=== PATIENT | female | born 1975 | race Caucasian/White ===

== ENCOUNTER 2019-10-26 17:10 | Inpatient (IN) | payer SELFPAY ==
[2019-10-26] VITALS (8 sets, daily range): BP systolic 109–138; BP diastolic 74–88
[~2019-10-26] VITALS: Ht 157.5 cm; Wt 98.8 kg
[2019-10-26] MEDS ORDERED: fentaNYL PF VIAL 100 MCG/2 ML VIAL ONE ×2 (17:14→19:24)
[2019-10-26] MEDS ORDERED: PROPOFOL 10 MG/ML (20ML) VIAL. IV ONE (17:14)
[2019-10-26] MEDS ORDERED: ROCURONIUM 50 MG/5 ML VIAL. ONE (17:14)
[2019-10-26] MEDS ORDERED: LIDOCAINE 2% PF 5 ML VIAL. ONE (17:14)
[2019-10-26] MEDS ORDERED: IV RINGERS,LACTATED 1000ML 1,000 ML IV SCH (17:24)
[2019-10-26] MEDS ORDERED: LIDOCAINE 1% PF 2 ML VIAL. ID PRN (17:30)
[2019-10-26] MEDS ORDERED: ONDANSETRON PF 4 MG/2 ML VIAL. IV PRN (17:30)
[2019-10-26] MEDS ORDERED: fentaNYL PF VIAL 100 MCG/2 ML VIAL IV PRN (17:30)
[2019-10-26] MEDS ORDERED: HYDROmorphone 2 MG/ML VIAL IV PRN (17:30)
[2019-10-26] MEDS ORDERED: MORPHINE SULFATE 2 MG/ML VIAL. IV PRN (17:30)
[2019-10-26] MEDS ORDERED: PROCHLORPERAZINE 10 MG/2 ML VIAL. IV PRN (17:30)
[2019-10-26] MEDS ORDERED: BUPIVACAINE-EPI 0.5%-1:200000 MPF 30 ML VIAL. ONE (17:36)
[2019-10-26] MEDS ORDERED: cefOXitin SODIUM IV Push 2 GM VIAL. IVP ONE (17:45)
[2019-10-26] MEDS ORDERED: fentaNYL PF VIAL 100 MCG/2 ML VIAL IVP ONE (17:45)
[2019-10-26] MEDS ORDERED: cefOXitin SODIUM IV Push 1 GM VIAL. IVP ONE ×2 (18:02→18:50)
[2019-10-26] MEDS: fentaNYL PF VIAL 100 MCG/2 ML VIAL IV PRN ×3 (18:25→19:35)
--- NOTE | 2019-10-26 18:28 | PDOC2 ---
CONSULT Date of Consult Date of Consult DATE: 10/26/19 TIME: 18:19 Reason for Consult Reason for Consult: Appendicitis Referring Physician Referring Physician: Dr. Nuñez Identification/Chief Complaint Chief Complaint RLQ abd pain Source Source: Chart review, Patient History of Present Illness Reason for Visit: appendicitis 44 yo F with c/o abd pain, beginning last night at work. She has mainly noted increased urinary frequency. No previous episodes. Pain has worsened. She was seen in [facility] and transferred to [facility]. Pt seen in pre. Past Medical History Cardiovascular: No pertinent hx Past Surgical History Past Surgical History: , Tonsillectomy Family History Family History: No Significant Social History 1 pack per day ALCOHOL: none Current Medications Current Medications Current Medications Propofol (Diprivan) 200 mg STK-MED ONCE IV ; Start 10/26/19 at 17:14; Stop 10/26/19 at 17:15; Status DC Lidocaine HCl (Lidocaine Pf 2% Vial) 5 ml STK-MED ONCE .ROUTE ; Start 10/26/19 at 17:14; Stop 10/26/19 at 17:15; Status DC Fentanyl Citrate (Fentanyl 2ml Vial) 100 mcg STK-MED ONCE .ROUTE ; Start 10/26/19 at 17:14; Stop 10/26/19 at 17:15; Status DC Rocuronium [place] (Zemuron) 50 mg STK-MED ONCE .ROUTE ; Start 10/26/19 at 17:14; Stop 10/26/19 at 17:15; Status DC Ondansetron HCl (Zofran) 4 mg PRN Q6HRS PRN IV NAUSEA/VOMITING; Start 10/26/19 at 17:30; Stop 10/27/19 at 17:29 Fentanyl Citrate (Fentanyl 2ml Vial) 25 mcg PRN Q5MIN PRN IV MILD PAIN 1-3; Start 10/26/19 at 17:30; Stop 10/27/19 at 17:29 Fentanyl Citrate (Fentanyl 2ml Vial) 50 mcg PRN Q5MIN PRN IV MODERATE TO SEVERE PAIN; Start 10/26/19 at 17:30; Stop 10/27/19 at 17:29 Morphine Sulfate (Morphine Sulfate) 1 mg PRN Q10MIN PRN IV SEVERE PAIN 7-10; Start 10/26/19 at 17:30; Stop 10/27/19 at 17:29 Ringer's Solution 1,000 ml @ 30 mls/hr Q24H IV Last administered on 10/26/19at 17:46; Start 10/26/19 at 17:24; Stop 10/27/19 at 05:23 Lidocaine HCl (Xylocaine-Mpf 1% 2ml Vial) 2 ml PRN 1X PRN ID PRIOR TO IV START; Start 10/26/19 at 17:30; Stop 10/27/19 at 17:29 Hydromorphone HCl (Dilaudid) 0.5 mg PRN Q10MIN PRN IV SEV PAIN, Second choice; Start 10/26/19 at 17:30; Stop 10/27/19 at 17:29 Prochlorperazine Edisylate (Compazine) 5 mg PACU PRN PRN IV NAUSEA, MRX1; Start 10/26/19 at 17:30; Stop 10/27/19 at 17:29 Cefoxitin Sodium (Mefoxin) 2 gm 1X PREOP ONCE IVP ; Start 10/26/19 at 17:45; Stop 10/26/19 at 17:46; Status DC Bupivacaine HCl/ Epinephrine Bitart (Sensorcain-Epi 0.5%-1:321759 Mpf) 30 ml STK-MED ONCE .ROUTE Last administered on 10/26/19at 18:12; Start 10/26/19 at 17:36; Stop 10/26/19 at 17:36; Status DC Fentanyl Citrate (Fentanyl 2ml Vial) 50 mcg 1X ONCE IVP Last administered on 10/26/19at 17:48; Start 10/26/19 at 17:45; Stop 10/26/19 at 17:46; Status DC Cefoxitin Sodium (Mefoxin) 1 gm STK-MED ONCE IVP ; Start 10/26/19 at 18:02; Stop 10/26/19 at 18:02; Status DC Allergies Allergies: Coded Allergies: No Known Drug Allergies (Unverified , 10/26/19) ROS Gastrointestinal: Yes Abdominal Pain Genitourinary: YES Frequency Physical Exam General: Alert, Oriented X3, Cooperative, mild distress, Other (obesity) HEENT: Atraumatic Lungs: Normal air movement Abdomen: Soft, Other (TTP RUQ<RLQ, peritoneal signs) Extremities: No clubbing, No cyanosis Skin: No rashes, No breakdown Neuro: Normal speech, Sensation intact Psych/Mental Status: Mental status NL, Mood NL Vitals VITALS Vital Signs Date Time Temp Pulse Resp B/P (MAP) Pulse Ox O2 Delivery O2 Flow Rate FiO2 10/26/19 18:05 100 20 143/79 98 Room Air Labs Labs Laboratory Tests Test 10/26/19 17:37 SARS-CoV-2 Antigen (Rapid) Negative (NEGATIVE) Laboratory Tests Test 10/26/19 17:37 SARS-CoV-2 Antigen (Rapid) Negative (NEGATIVE) Images Images CT at [facility] with inflamed appendix Assessment/Plan Assessment/Plan Appendicitis covid neg given elevated WBC, suspect pt with perforated appendicitis TO OR for laparoscopic versus open appendectomy. R/R/B/A d/w pt. Risks, including, but not limited to: bleeding, infection, damage to surrounding structures, risk of anesthesia, risk of open. She appears to understand, her questions are answered and she elects to proceed. Thanks for consult! KOKO STARK MD Oct 26, 2019 18:28
[2019-10-26] MEDS ORDERED: DESFLURANE 31 TO 60 MINUTES IH ONE (18:38)
[2019-10-26] MEDS ORDERED: ONDANSETRON PF 4 MG/2 ML VIAL. ONE (18:38)
[2019-10-26] MEDS ORDERED: DEXAMETHASONE SOD PHOS 4 MG/ML VIAL ONE (18:38)
[2019-10-26] MEDS ORDERED: NEOSTIGMINE 10 MG/10 ML VIAL. ONE (18:58)
[2019-10-26] MEDS ORDERED: GLYCOPYRROLATE 1 MG/5 ML VIAL. ONE (18:58)
[2019-10-26] MEDS: IV NORMAL SALINE 1000ML BAG 1,000 ML IV SCH (19:12)
[2019-10-26] MEDS ORDERED: NALOXONE 0.4 MG/ML VIAL. IV PRN (19:15)
[2019-10-26] MEDS ORDERED: 0.9 % SODIUM CHLORIDE 10 ML DISP.SYRIN. IV PRN (19:15)
--- NOTE | 2019-10-26 19:22 | PDOC4 ---
OPERATIVE NOTE Date: Date: Oct 26, 2019 Pre-Op Diagnosis: Appendicitis Post-Op Diagnosis: same Procedure Performed: laparoscopic appendectomy Surgeon: Axel Stark Anesthesia Type: GETA plus local Blood Loss: 50 Specimans Obtained: appendix Findings: distended, inflamed appendix, friable Complications: none Operative Note: After obtaining informed consent, patient was taken to OR, induced under GETA and prepped in the usual fashion. 5mm port placed LLQ and suprapubic, 12 port placed RUQ, all under laparoscopic guidance. Abdominal cavity was explored and otherwise unremarkable, although exploration difficult secondary to obesity. Liver fatty and gallbladder micheal's egg blue. Visualized viscera normal. Appendix was identified and found to be distended and friable. Minimal manipulation resulted in some drainage from appendix. Defect created in mesoappendix. General load KEISHA taken across base at level of cecum. Mesoappendix was divided with vascular load. Additional hemostasis obtained with clips. Appendix placed in bag, delivered and sent to pathology for evaluation. Copious irrigation. No evidence of bleeding or other pathology at time of closure. Ports removed without bleeding. Fascia repaired with 0 vicryl. Skin repaired with 4 0 monocryl. Dressin placed. Patient tolerated procedure well and sent to PACU in stable condition. All counts correct. Wound class is 4, dirty. KOKO STARK MD Oct 26, 2019 19:22
[2019-10-26] MEDS ORDERED: PROCHLORPERAZINE 10 MG/2 ML VIAL. ONE (19:24)
--- NOTE | 2019-10-26 20:17 | SSS ---
ADMIT DATE: 10/26/2019 Discharge will be 10/26, from prediction she is going home. CHIEF COMPLAINT: Abdominal pain. HISTORY OF PRESENT ILLNESS: The patient is a pleasant middle-aged female who presented to the ER with abdominal pain. She initially went to [facility]. She rates her pain at 7/10. She has associated nausea. They did a CAT scan that confirmed appendicitis. They called me, we transferred the patient. Now, she is in the postoperative area. Dr. Casillas operated on her, did a laparoscopic appendectomy. PAST MEDICAL AND SURGICAL HISTORY: Overweight, as well, tonsillectomy, tobacco abuse. ALLERGIES: None. FAMILY HISTORY: Diabetes. SOCIAL HISTORY: She works at a gas station. She does not take drugs or drink. She does smoke. MEDICATIONS: Reviewed. Please refer to the MRAD. REVIEW OF SYSTEMS: GENERAL: No history of weight change, weakness or fevers. SKIN: No bruising, hair changes or rashes. EYES: No blurred, double or loss of vision. NOSE AND THROAT: No history of nosebleeds, hoarseness or sore throat. HEART: No history of palpitations, chest pain or shortness of breath on exertion. LUNGS: Denies cough, hemoptysis, wheezing or shortness of breath. GASTROINTESTINAL: She complains of abdominal pain. GENITOURINARY: No history of frequency, urgency, hesitancy or nocturia. NEUROLOGIC: Denies history of numbness, tingling, tremor or weakness. PSYCHIATRIC: No history of panic, anxiety or depression. ENDOCRINE: No history of heat or cold intolerance, polyuria or polydipsia. EXTREMITIES: Denies muscle weakness, joint pain, pain on walking or stiffness. PHYSICAL EXAMINATION: VITALS: Within normal limits and are stable. GENERAL: No apparent distress. Alert and oriented. HEENT: Normal cephalic atraumatic, external auditory canals are patent. EYES: Extraocular muscles are intact, pupils are equally round and reactive to light and accommodation. MUSCULOSKELETAL: Well developed, well nourished, good range of motion. ENDOCRINE: No thyromegaly was palpated. LYMPHATICS: No cervical chain or axillary nodes were noted. HEMATOPOIETIC: No bruising. NECK: Supple, no JVD, no thyromegaly was noted. LUNGS: Clear to auscultation in all lung mcconnell without rhonchi or wheezing. HEART: RRR, S1, S2 present. Peripheral pulses intact, no obvious murmurs were noted. ABDOMEN: She has clean, dry and intact dressings over 3 trocar sites. EXTREMITIES: Without any cyanosis, clubbing, or edema. Pedal pulses intact, Homans sign is negative. NEUROLOGIC: Normal speech, normal tone. A & O x3, moves all extremities, no obvious focal deficits. PSYCHIATRIC: Normal affect, normal mood. Stable. SKIN: No ulcerations or rashes, good skin turgor, no jaundice. VASCULAR: Good capillary refill, neurovascular bundle appears to be intact. LABORATORY DATA: Her COVID testing was negative. ASSESSMENT AND PLAN: Postoperative laparoscopic appendectomy. The patient has been admitted to the medical floor. We are going to do wound care, home meds, IV fluids, p.r.n. pain meds. Try to advance her diet. We have her currently on a clear liquid diet if she can tolerate that. Deep venous thrombosis prophylaxis. P.r.n. hydrocodone, IV antibiotics. Hopefully she can go home tomorrow if she is tolerating her diet. GERARDO PATEL DO DR: HITESH/cristal JOB#: [id number] / [id number]
[2019-10-26] MEDS: MORPHINE SULFATE 2 MG/ML VIAL. IV PRN ×2 (21:14→23:23)
[2019-10-27] MEDS: PIPERACILLIN/TAZOBACTAM 3.375 GM in IV NORMAL SALINE 50ML 50 ML IV SCH ×5 (00:27→23:01)
[2019-10-27] MEDS: IV NORMAL SALINE 1000ML BAG 1,000 ML IV SCH (00:28)
[2019-10-27] MEDS: MORPHINE SULFATE 2 MG/ML VIAL. IV PRN ×3 (02:18→21:42)
[2019-10-27 03:00] VITALS: BP 115/64
[2019-10-27 03:15] LABS: BASO # 0.1 x10^3/uL (0.0-0.2); BASO % 0 % (0-3); EOS % 0 % (0-3); HEMATOCRIT 40.9 % (36.0-47.0); HEMOGLOBIN 13.9 g/dL (12.0-15.5); LYMPH # 1.3 x10^3/uL (1.0-4.8); LYMPH % 7 % (24-48); MEAN CORPUSCULAR HEMOGLOBIN 33 pg (25-35); MEAN CORPUSCULAR HGB CONC 34 g/dL (31-37); MEAN CORPUSCULAR VOLUME 98 fL (79-100); MONO # 0.6 x10^3/uL (0.0-1.1); MONO % 3 % (0-9); NEUT # 15.6 x10^3/uL (1.8-7.7); NEUT % 89 % (31-73); PLATELET COUNT 267 x10^3/uL (140-400); RED BLOOD COUNT 4.18 x10^6/uL (3.50-5.40); WHITE BLOOD COUNT 17.5 x10^3/uL (4.0-11.0)
[2019-10-27 03:53] LABS: % BANDS 15 % (0-9); % LYMPHS 9 % (24-48); % MONOS 2 % (0-10); % SEGS 74 % (35-66); PLT ESTIMATE ADEQUATE (ADEQUATE)
[2019-10-27] MEDS: IV RINGERS,LACTATED 1000ML 1,000 ML IV SCH ×3 (05:12→17:45)
[2019-10-27] MEDS: HYDROcodone/APAP 5/325MG 1 TAB TABLET PO PRN ×3 (06:05→17:44)
[2019-10-27 07:00] VITALS: BP 120/76
[2019-10-27] MEDS: KETOROLAC 30 MG/ML VIAL. IV PRN ×3 (08:51→23:00)
[2019-10-27] MEDS: HEPARIN for SUB-Q USE 5,000 UNIT/ML VIAL. SQ SCH ×2 (08:59→21:48)
--- NOTE | 2019-10-27 09:24 | PDOC ---
PROGRESS NOTES Subjective Subjective sore "all over abdomen" Objective Objective Vital Signs Date Time Temp Pulse Resp B/P (MAP) Pulse Ox O2 Delivery O2 Flow Rate FiO2 10/27/19 07:00 98.8 112 18 120/76 (91) 90 Room Air 98.8 10/27/19 00:00 3.0 Intake and Output 10/27/19 07:00 Intake Total 1160 ml Output Total 350 ml Balance 810 ml Intake Oral 360 ml IV Total 800 ml Output Urine Total 300 ml Estimated Blood Loss 50 ml # Voids 1 Physical Exam Abdomen: Soft (tender with palpation) Assessment Assessment POD 1 lap appy Plan Plan of Care Continue antibiotics, pain control, ambulate today Comment Review of Relevant I have reviewed the following items rod (where applicable) has been applied. Labs Laboratory Tests Test 10/26/19 17:37 10/27/19 02:45 SARS-CoV-2 Antigen (Rapid) Negative (NEGATIVE) White Blood Count 17.5 x10^3/uL (4.0-11.0) Red Blood Count 4.18 x10^6/uL (3.50-5.40) Hemoglobin 13.9 g/dL (12.0-15.5) Hematocrit 40.9 % (36.0-47.0) Mean Corpuscular Volume 98 fL (79-100) Mean Corpuscular Hemoglobin 33 pg (25-35) Mean Corpuscular Hemoglobin Concent 34 g/dL (31-37) Red Cell Distribution Width 13.0 % (11.5-14.5) Platelet Count 267 x10^3/uL (140-400) Neutrophils (%) (Auto) 89 % (31-73) Lymphocytes (%) (Auto) 7 % (24-48) Monocytes (%) (Auto) 3 % (0-9) Eosinophils (%) (Auto) 0 % (0-3) Basophils (%) (Auto) 0 % (0-3) Neutrophils # (Auto) 15.6 x10^3/uL (1.8-7.7) Lymphocytes # (Auto) 1.3 x10^3/uL (1.0-4.8) Monocytes # (Auto) 0.6 x10^3/uL (0.0-1.1) Eosinophils # (Auto) 0.0 x10^3/uL (0.0-0.7) Basophils # (Auto) 0.1 x10^3/uL (0.0-0.2) Segmented Neutrophils % 74 % (35-66) Band Neutrophils % 15 % (0-9) Lymphocytes % 9 % (24-48) Monocytes % 2 % (0-10) Platelet Estimate Adequate (ADEQUATE) Laboratory Tests Test 10/26/19 17:37 10/27/19 02:45 SARS-CoV-2 Antigen (Rapid) Negative (NEGATIVE) White Blood Count 17.5 x10^3/uL (4.0-11.0) Red Blood Count 4.18 x10^6/uL (3.50-5.40) Hemoglobin 13.9 g/dL (12.0-15.5) Hematocrit 40.9 % (36.0-47.0) Mean Corpuscular Volume 98 fL (79-100) Mean Corpuscular Hemoglobin 33 pg (25-35) Mean Corpuscular Hemoglobin Concent 34 g/dL (31-37) Red Cell Distribution Width 13.0 % (11.5-14.5) Platelet Count 267 x10^3/uL (140-400) Neutrophils (%) (Auto) 89 % (31-73) Lymphocytes (%) (Auto) 7 % (24-48) Monocytes (%) (Auto) 3 % (0-9) Eosinophils (%) (Auto) 0 % (0-3) Basophils (%) (Auto) 0 % (0-3) Neutrophils # (Auto) 15.6 x10^3/uL (1.8-7.7) Lymphocytes # (Auto) 1.3 x10^3/uL (1.0-4.8) Monocytes # (Auto) 0.6 x10^3/uL (0.0-1.1) Eosinophils # (Auto) 0.0 x10^3/uL (0.0-0.7) Basophils # (Auto) 0.1 x10^3/uL (0.0-0.2) Segmented Neutrophils % 74 % (35-66) Band Neutrophils % 15 % (0-9) Lymphocytes % 9 % (24-48) Monocytes % 2 % (0-10) Platelet Estimate Adequate (ADEQUATE) Medications Current Medications Propofol (Diprivan) 200 mg STK-MED ONCE IV ; Start 10/26/19 at 17:14; Stop 10/26/19 at 17:15; Status DC Lidocaine HCl (Lidocaine Pf 2% Vial) 5 ml STK-MED ONCE .ROUTE ; Start 10/26/19 at 17:14; Stop 10/26/19 at 17:15; Status DC Fentanyl Citrate (Fentanyl 2ml Vial) 100 mcg STK-MED ONCE .ROUTE ; Start 10/26/19 at 17:14; Stop 10/26/19 at 17:15; Status DC Rocuronium [place] (Zemuron) 50 mg STK-MED ONCE .ROUTE ; Start 10/26/19 at 17:14; Stop 10/26/19 at 17:15; Status DC Ondansetron HCl (Zofran) 4 mg PRN Q6HRS PRN IV NAUSEA/VOMITING; Start 10/26/19 at 17:30; Stop 10/27/19 at 17:29 Fentanyl Citrate (Fentanyl 2ml Vial) 25 mcg PRN Q5MIN PRN IV MILD PAIN 1-3; Start 10/26/19 at 17:30; Stop 10/27/19 at 17:29 Fentanyl Citrate (Fentanyl 2ml Vial) 50 mcg PRN Q5MIN PRN IV MODERATE TO SEVERE PAIN Last administered on 10/26/19at 19:35; Start 10/26/19 at 17:30; Stop 10/27/19 at 17:29 Morphine Sulfate (Morphine Sulfate) 1 mg PRN Q10MIN PRN IV SEVERE PAIN 7-10; Start 10/26/19 at 17:30; Stop 10/27/19 at 17:29 Ringer's Solution 1,000 ml @ 30 mls/hr Q24H IV Last administered on 10/26/19at 17:46; Start 10/26/19 at 17:24; Stop 10/27/19 at 05:23; Status DC Lidocaine HCl (Xylocaine-Mpf 1% 2ml Vial) 2 ml PRN 1X PRN ID PRIOR TO IV START; Start 10/26/19 at 17:30; Stop 10/27/19 at 17:29 Hydromorphone HCl (Dilaudid) 0.5 mg PRN Q10MIN PRN IV SEV PAIN, Second choice; Start 10/26/19 at 17:30; Stop 10/27/19 at 17:29 Prochlorperazine Edisylate (Compazine) 5 mg PACU PRN PRN IV NAUSEA, MRX1 Last administered on 10/26/19at 19:26; Start 10/26/19 at 17:30; Stop 10/27/19 at 17:29 Cefoxitin Sodium (Mefoxin) 2 gm 1X PREOP ONCE IVP Last administered on at 18:39; Start 10/26/19 at 17:45; Stop 10/26/19 at 17:46; Status DC Bupivacaine HCl/ Epinephrine Bitart (Sensorcain-Epi 0.5%-1:297040 Mpf) 30 ml STK-MED ONCE .ROUTE Last administered on 10/26/19at 18:12; Start 10/26/19 at 17:36; Stop 10/26/19 at 17:36; Status DC Fentanyl Citrate (Fentanyl 2ml Vial) 50 mcg 1X ONCE IVP Last administered on 10/26/19at 17:48; Start 10/26/19 at 17:45; Stop 10/26/19 at 17:46; Status DC Cefoxitin Sodium (Mefoxin) 1 gm STK-MED ONCE IVP ; Start 10/26/19 at 18:02; Stop 10/26/19 at 18:02; Status DC Dexamethasone Sodium Phosphate (Decadron) 4 mg STK-MED ONCE .ROUTE ; Start 10/26/19 at 18:38; Stop 10/26/19 at 18:39; Status DC Desflurane (Suprane) 30 ml STK-MED ONCE IH ; Start 10/26/19 at 18:38; Stop 10/26/19 at 18:39; Status DC Ondansetron HCl (Zofran) 4 mg STK-MED ONCE .ROUTE ; Start 10/26/19 at 18:38; Stop 10/26/19 at 18:39; Status DC Cefoxitin Sodium (Mefoxin) 1 gm STK-MED ONCE IVP ; Start 10/26/19 at 18:50; Stop 10/26/19 at 18:50; Status DC Neostigmine Methylsulfate (Bloxiverz) 10 mg STK-MED ONCE .ROUTE ; Start 10/26/19 at 18:58; Stop 10/26/19 at 18:58; Status DC Glycopyrrolate (Robinul) 1 mg STK-MED ONCE .ROUTE ; Start 10/26/19 at 18:58; Stop 10/26/19 at 18:59; Status DC Heparin Sodium (Porcine) (Heparin Sodium) 5,000 unit Q12HR SQ Last administered on 10/27/19at 08:59; Start 10/27/19 at 09:00 Sodium Chloride (Normal Saline Flush) 3 ml QSHIFT PRN IV AFTER MEDS AND BLOOD DRAWS; Start 10/26/19 at 19:15 Ringer's Solution 1,000 ml @ 100 mls/hr Q10H IV Last administered on 10/27/19at 08:44; Start 10/26/19 at 19:12 Acetaminophen/ Hydrocodone Bitart (Lortab 5/325) 1 tab PRN Q4HRS PRN PO MILD PAIN 1-3 Last administered on 10/27/19at 06:05; Start 10/26/19 at 19:15 Ketorolac Tromethamine (Toradol 30mg Vial) 30 mg PRN Q6HRS PRN IV PAIN Last administered on 10/27/19at 08:51; Start 10/26/19 at 19:15; Stop 10/31/19 at 19:14 Naloxone HCl (Narcan) 0.4 mg PRN Q2MIN PRN IV SEE INSTRUCTIONS; Start 10/26/19 at 19:15 Sodium Chloride 1,000 ml @ 25 mls/hr Q24H IV ; Start 10/26/19 at 19:12 Morphine Sulfate (Morphine Sulfate) 1 mg PRN Q1HR PRN IV PAIN Last administered on 10/27/19at 02:18; Start 10/26/19 at 19:15 Ondansetron HCl (Zofran) 4 mg PRN Q6HRS PRN IVP NAUESA, 1ST CHOICE; Start 10/26/19 at 19:15 Piperacillin Sod/ Tazobactam Sod 3.375 gm/Sodium Chloride 50 ml @ 100 mls/hr Q6HRS IV Last administered on 10/27/19at 06:03; Start 10/27/19 at 00:00 Fentanyl Citrate (Fentanyl 2ml Vial) 100 mcg STK-MED ONCE .ROUTE ; Start 10/26/19 at 19:24; Stop 10/26/19 at 19:24; Status DC Prochlorperazine Edisylate (Compazine) 10 mg STK-MED ONCE .ROUTE ; Start 10/26/19 at 19:24; Stop 10/26/19 at 19:24; Status DC Vitals/I & O Vital Sign - Last 24 Hours 10/26/19 10/26/19 10/26/19 10/26/19 17:30 17:48 18:05 18:25 Pulse 99 100 Resp 20 20 20 20 B/P (MAP) 177/88 143/79 Pulse Ox 97 98 98 99 O2 Delivery Room Air Room Air Room Air 10/26/19 10/26/19 10/26/19 10/26/19 19:18 19:18 19:26 19:33 Temp 98.9 98.9 98.9 98.9 Pulse 104 105 Resp 15 B/P (MAP) 141/76 139/71 Pulse Ox 95 95 92 O2 Delivery Room Air Simple Mask Room Air Nasal Cannula O2 Flow Rate 10 10.0 2 10/26/19 10/26/19 10/26/19 10/26/19 19:35 19:48 20:00 20:15 Temp 98.9 97.9 98.9 97.9 Pulse 94 70 104 Resp 15 15 18 B/P (MAP) 131/77 134/86 (102) 109/75 (86) Pulse Ox 95 95 100 92 O2 Delivery Room Air Nasal Cannula Room Air Room Air O2 Flow Rate 10.0 3 10/26/19 10/26/19 10/26/19 10/26/19 20:30 20:45 21:00 21:14 Pulse 99 99 115 Resp 24 B/P (MAP) 130/82 (98) 138/83 (101) 132/74 (93) Pulse Ox 93 92 94 95 O2 Delivery Room Air Room Air Room Air Nasal Cannula O2 Flow Rate 3.0 10/26/19 10/26/19 10/26/19 10/26/19 21:30 21:45 22:00 23:00 Temp 97.9 97.9 Pulse 104 115 104 Resp 20 B/P (MAP) 130/76 (94) 133/88 (103) 127/77 (94) Pulse Ox 94 96 96 O2 Delivery Room Air Room Air Room Air O2 Flow Rate 3.0 10/26/19 10/26/19 10/27/19 10/27/19 23:23 23:55 00:00 02:18 Resp 24 22 24 O2 Delivery Room Air Nasal Cannula O2 Flow Rate 3.0 10/27/19 10/27/19 10/27/19 03:00 06:05 07:00 Temp 99.8 98.8 99.8 98.8 Pulse 120 112 Resp 18 18 18 B/P (MAP) 115/64 (81) 120/76 (91) Pulse Ox 96 90 O2 Delivery Room Air Room Air Room Air Intake and Output 10/26/19 10/26/19 10/27/19 15:00 23:00 07:00 Intake Total 800 ml 360 ml Output Total 200 ml 150 ml Balance 600 ml 210 ml Justicifation of Admission Dx: Justifications for Admission: Justification of Admission Dx: Yes MARIA LUISA MARIE MD Oct 27, 2019 09:24
--- NOTE | 2019-10-27 09:54 | NUR ---
SW following. Discussed with RN, pt from home, room air, had surgery 10/26/2019. Pt doing fine, on clear liquid diet. Still managing pain and receiving IV abx. Med Assist following for self pay status. SW will continue to follow for any discharge planning needs.
[2019-10-27 11:00] VITALS: BP 124/78
--- NOTE | 2019-10-27 11:19 | PDOC ---
PROGRESS NOTES Chief Complaint Chief Complaint Acute appendicitis status post appendectomy POD #1 Obesity with a BMI of 39 Tobacco abuse Leukocytosis secondary to acute appendicitis Plan: labs in am pain management Incentive spirometry further recommendations based on clinical course. DVT prophylaxis: scd and teds History of Present Illness History of Present Illness No acute events reported overnight, case discussed with nursing staff patient in no acute distress no complaints during my visit Vitals Vitals Vital Signs Date Time Temp Pulse Resp B/P (MAP) Pulse Ox O2 Delivery O2 Flow Rate FiO2 10/27/19 07:40 19 90 Room Air 10/27/19 07:00 98.8 112 120/76 (91) 98.8 10/27/19 00:00 3.0 Physical Exam General: Alert, Oriented X3, Cooperative, mild distress, Other (obesity) Heart: Regular rate, Normal S1, Normal S2 Lungs: Clear Abdomen: Soft (tender with palpation) Extremities: No clubbing, No cyanosis Skin: No rashes, No breakdown Labs LABS Laboratory Tests Test 10/26/19 17:37 10/27/19 02:45 SARS-CoV-2 Antigen (Rapid) Negative (NEGATIVE) White Blood Count 17.5 x10^3/uL (4.0-11.0) Red Blood Count 4.18 x10^6/uL (3.50-5.40) Hemoglobin 13.9 g/dL (12.0-15.5) Hematocrit 40.9 % (36.0-47.0) Mean Corpuscular Volume 98 fL (79-100) Mean Corpuscular Hemoglobin 33 pg (25-35) Mean Corpuscular Hemoglobin Concent 34 g/dL (31-37) Red Cell Distribution Width 13.0 % (11.5-14.5) Platelet Count 267 x10^3/uL (140-400) Neutrophils (%) (Auto) 89 % (31-73) Lymphocytes (%) (Auto) 7 % (24-48) Monocytes (%) (Auto) 3 % (0-9) Eosinophils (%) (Auto) 0 % (0-3) Basophils (%) (Auto) 0 % (0-3) Neutrophils # (Auto) 15.6 x10^3/uL (1.8-7.7) Lymphocytes # (Auto) 1.3 x10^3/uL (1.0-4.8) Monocytes # (Auto) 0.6 x10^3/uL (0.0-1.1) Eosinophils # (Auto) 0.0 x10^3/uL (0.0-0.7) Basophils # (Auto) 0.1 x10^3/uL (0.0-0.2) Segmented Neutrophils % 74 % (35-66) Band Neutrophils % 15 % (0-9) Lymphocytes % 9 % (24-48) Monocytes % 2 % (0-10) Platelet Estimate Adequate (ADEQUATE) Comment Review of Relevant I have reviewed the following items rod (where applicable) has been applied. Labs Laboratory Tests Test 10/26/19 17:37 10/27/19 02:45 SARS-CoV-2 Antigen (Rapid) Negative (NEGATIVE) White Blood Count 17.5 x10^3/uL (4.0-11.0) Red Blood Count 4.18 x10^6/uL (3.50-5.40) Hemoglobin 13.9 g/dL (12.0-15.5) Hematocrit 40.9 % (36.0-47.0) Mean Corpuscular Volume 98 fL (79-100) Mean Corpuscular Hemoglobin 33 pg (25-35) Mean Corpuscular Hemoglobin Concent 34 g/dL (31-37) Red Cell Distribution Width 13.0 % (11.5-14.5) Platelet Count 267 x10^3/uL (140-400) Neutrophils (%) (Auto) 89 % (31-73) Lymphocytes (%) (Auto) 7 % (24-48) Monocytes (%) (Auto) 3 % (0-9) Eosinophils (%) (Auto) 0 % (0-3) Basophils (%) (Auto) 0 % (0-3) Neutrophils # (Auto) 15.6 x10^3/uL (1.8-7.7) Lymphocytes # (Auto) 1.3 x10^3/uL (1.0-4.8) Monocytes # (Auto) 0.6 x10^3/uL (0.0-1.1) Eosinophils # (Auto) 0.0 x10^3/uL (0.0-0.7) Basophils # (Auto) 0.1 x10^3/uL (0.0-0.2) Segmented Neutrophils % 74 % (35-66) Band Neutrophils % 15 % (0-9) Lymphocytes % 9 % (24-48) Monocytes % 2 % (0-10) Platelet Estimate Adequate (ADEQUATE) Laboratory Tests Test 10/26/19 17:37 10/27/19 02:45 SARS-CoV-2 Antigen (Rapid) Negative (NEGATIVE) White Blood Count 17.5 x10^3/uL (4.0-11.0) Red Blood Count 4.18 x10^6/uL (3.50-5.40) Hemoglobin 13.9 g/dL (12.0-15.5) Hematocrit 40.9 % (36.0-47.0) Mean Corpuscular Volume 98 fL (79-100) Mean Corpuscular Hemoglobin 33 pg (25-35) Mean Corpuscular Hemoglobin Concent 34 g/dL (31-37) Red Cell Distribution Width 13.0 % (11.5-14.5) Platelet Count 267 x10^3/uL (140-400) Neutrophils (%) (Auto) 89 % (31-73) Lymphocytes (%) (Auto) 7 % (24-48) Monocytes (%) (Auto) 3 % (0-9) Eosinophils (%) (Auto) 0 % (0-3) Basophils (%) (Auto) 0 % (0-3) Neutrophils # (Auto) 15.6 x10^3/uL (1.8-7.7) Lymphocytes # (Auto) 1.3 x10^3/uL (1.0-4.8) Monocytes # (Auto) 0.6 x10^3/uL (0.0-1.1) Eosinophils # (Auto) 0.0 x10^3/uL (0.0-0.7) Basophils # (Auto) 0.1 x10^3/uL (0.0-0.2) Segmented Neutrophils % 74 % (35-66) Band Neutrophils % 15 % (0-9) Lymphocytes % 9 % (24-48) Monocytes % 2 % (0-10) Platelet Estimate Adequate (ADEQUATE) Medications Current Medications Propofol (Diprivan) 200 mg STK-MED ONCE IV ; Start 10/26/19 at 17:14; Stop 10/26/19 at 17:15; Status DC Lidocaine HCl (Lidocaine Pf 2% Vial) 5 ml STK-MED ONCE .ROUTE ; Start 10/26/19 at 17:14; Stop 10/26/19 at 17:15; Status DC Fentanyl Citrate (Fentanyl 2ml Vial) 100 mcg STK-MED ONCE .ROUTE ; Start 10/26/19 at 17:14; Stop 10/26/19 at 17:15; Status DC Rocuronium [place] (Zemuron) 50 mg STK-MED ONCE .ROUTE ; Start 10/26/19 at 17:14; Stop 10/26/19 at 17:15; Status DC Ondansetron HCl (Zofran) 4 mg PRN Q6HRS PRN IV NAUSEA/VOMITING; Start 10/26/19 at 17:30; Stop 10/27/19 at 17:29 Fentanyl Citrate (Fentanyl 2ml Vial) 25 mcg PRN Q5MIN PRN IV MILD PAIN 1-3; Start 10/26/19 at 17:30; Stop 10/27/19 at 17:29 Fentanyl Citrate (Fentanyl 2ml Vial) 50 mcg PRN Q5MIN PRN IV MODERATE TO SEVERE PAIN Last administered on 10/26/19at 19:35; Start 10/26/19 at 17:30; Stop 09/30 11/18 at 17:29 Morphine Sulfate (Morphine Sulfate) 1 mg PRN Q10MIN PRN IV SEVERE PAIN 7-10; Start 10/26/19 at 17:30; Stop 10/27/19 at 17:29 Ringer's Solution 1,000 ml @ 30 mls/hr Q24H IV Last administered on 10/26/19at 17:46; Start 10/26/19 at 17:24; Stop 10/27/19 at 05:23; Status DC Lidocaine HCl (Xylocaine-Mpf 1% 2ml Vial) 2 ml PRN 1X PRN ID PRIOR TO IV START; Start 10/26/19 at 17:30; Stop 10/27/19 at 17:29 Hydromorphone HCl (Dilaudid) 0.5 mg PRN Q10MIN PRN IV SEV PAIN, Second choice; Start 10/26/19 at 17:30; Stop 10/27/19 at 17:29 Prochlorperazine Edisylate (Compazine) 5 mg PACU PRN PRN IV NAUSEA, MRX1 Last administered on 10/26/19at 19:26; Start 10/26/19 at 17:30; Stop 10/27/19 at 17:29 Cefoxitin Sodium (Mefoxin) 2 gm 1X PREOP ONCE IVP Last administered on 10/26/19at 18:39; Start 10/26/19 at 17:45; Stop 10/26/19 at 17:46; Status DC Bupivacaine HCl/ Epinephrine Bitart (Sensorcain-Epi 0.5%-1:438880 Mpf) 30 ml STK-MED ONCE .ROUTE Last administered on 10/26/19at 18:12; Start 10/26/19 at 17:36; Stop 10/26/19 at 17:36; Status DC Fentanyl Citrate (Fentanyl 2ml Vial) 50 mcg 1X ONCE IVP Last administered on 10/26/19at 17:48; Start 10/26/19 at 17:45; Stop 10/26/19 at 17:46; Status DC Cefoxitin Sodium (Mefoxin) 1 gm STK-MED ONCE IVP ; Start 10/26/19 at 18:02; Stop 10/26/19 at 18:02; Status DC Dexamethasone Sodium Phosphate (Decadron) 4 mg STK-MED ONCE .ROUTE ; Start 10/26/19 at 18:38; Stop 10/26/19 at 18:39; Status DC Desflurane (Suprane) 30 ml STK-MED ONCE IH ; Start 10/26/19 at 18:38; Stop 10/26/19 at 18:39; Status DC Ondansetron HCl (Zofran) 4 mg STK-MED ONCE .ROUTE ; Start 10/26/19 at 18:38; Stop 10/26/19 at 18:39; Status DC Cefoxitin Sodium (Mefoxin) 1 gm STK-MED ONCE IVP ; Start 10/26/19 at 18:50; Stop 10/26/19 at 18:50; Status DC Neostigmine Methylsulfate (Bloxiverz) 10 mg STK-MED ONCE .ROUTE ; Start 10/26/19 at 18:58; Stop 10/26/19 at 18:58; Status DC Glycopyrrolate (Robinul) 1 mg STK-MED ONCE .ROUTE ; Start 10/26/19 at 18:58; Stop 10/26/19 at 18:59; Status DC Heparin Sodium (Porcine) (Heparin Sodium) 5,000 unit Q12HR SQ Last administered on 10/27/19at 08:59; Start 10/27/19 at 09:00 Sodium Chloride (Normal Saline Flush) 3 ml QSHIFT PRN IV AFTER MEDS AND BLOOD DRAWS; Start 10/26/19 at 19:15 Ringer's Solution 1,000 ml @ 100 mls/hr Q10H IV Last administered on 10/27/19at 08:44; Start 10/26/19 at 19:12 Acetaminophen/ Hydrocodone Bitart (Lortab 5/325) 1 tab PRN Q4HRS PRN PO MILD PAIN 1-3 Last administered on 10/27/19at 06:05; Start 10/26/19 at 19:15 Ketorolac Tromethamine (Toradol 30mg Vial) 30 mg PRN Q6HRS PRN IV PAIN Last administered on 10/27/19at 08:51; Start 10/26/19 at 19:15; Stop 10/31/19 at 19:14 Naloxone HCl (Narcan) 0.4 mg PRN Q2MIN PRN IV SEE INSTRUCTIONS; Start 10/26/19 at 19:15 Sodium Chloride 1,000 ml @ 25 mls/hr Q24H IV ; Start 10/26/19 at 19:12 Morphine Sulfate (Morphine Sulfate) 1 mg PRN Q1HR PRN IV PAIN Last administered on 10/27/19at 02:18; Start 10/26/19 at 19:15 Ondansetron HCl (Zofran) 4 mg PRN Q6HRS PRN IVP NAUESA, 1ST CHOICE; Start 10/26/19 at 19:15 Piperacillin Sod/ Tazobactam Sod 3.375 gm/Sodium Chloride 50 ml @ 100 mls/hr Q6HRS IV Last administered on 10/27/19at 06:03; Start 10/27/19 at 00:00 Fentanyl Citrate (Fentanyl 2ml Vial) 100 mcg STK-MED ONCE .ROUTE ; Start 10/26/19 at 19:24; Stop 10/26/19 at 19:24; Status DC Prochlorperazine Edisylate (Compazine) 10 mg STK-MED ONCE .ROUTE ; Start 10/26/19 at 19:24; Stop 10/26/19 at 19:24; Status DC Vitals/I & O Vital Sign - Last 24 Hours 10/26/19 10/26/19 10/26/19 10/26/19 17:30 17:48 18:05 18:25 Pulse 99 100 Resp 20 20 20 20 B/P (MAP) 177/88 143/79 Pulse Ox 97 98 98 99 O2 Delivery Room Air Room Air Room Air 10/26/19 10/26/19 10/26/19 10/26/19 19:18 19:18 19:26 19:33 Temp 98.9 98.9 98.9 98.9 Pulse 104 105 Resp 15 15 15 B/P (MAP) 141/76 139/71 Pulse Ox 95 95 92 O2 Delivery Room Air Simple Mask Room Air Nasal Cannula O2 Flow Rate 10 10.0 2 10/26/19 10/26/19 10/26/19 10/26/19 19:35 19:48 20:00 20:15 Temp 98.9 97.9 98.9 97.9 Pulse 94 70 104 Resp 15 15 18 B/P (MAP) 131/77 134/86 (102) 109/75 (86) Pulse Ox 95 95 100 92 O2 Delivery Room Air Nasal Cannula Room Air Room Air O2 Flow Rate 10.0 3 10/26/19 10/26/19 10/26/19 10/26/19 20:30 20:45 21:00 21:14 Pulse 99 99 115 Resp 24 B/P (MAP) 130/82 (98) 138/83 (101) 132/74 (93) Pulse Ox 93 92 94 95 O2 Delivery Room Air Room Air Room Air Nasal Cannula O2 Flow Rate 3.0 10/26/19 10/26/19 10/26/19 10/26/19 21:30 21:45 22:00 23:00 Temp 97.9 97.9 Pulse 104 115 104 Resp 20 B/P (MAP) 130/76 (94) 133/88 (103) 127/77 (94) Pulse Ox 94 96 96 O2 Delivery Room Air Room Air Room Air O2 Flow Rate 3.0 10/26/19 10/26/19 10/27/19 10/27/19 23:23 23:55 00:00 02:18 Resp 24 O2 Delivery Room Air Nasal Cannula O2 Flow Rate 3.0 10/27/19 10/27/19 10/27/19 10/27/19 03:00 06:05 07:00 07:40 Temp 99.8 98.8 99.8 98.8 Pulse 120 112 Resp 18 18 18 19 B/P (MAP) 115/64 (81) 120/76 (91) Pulse Ox 96 90 90 O2 Delivery Room Air Room Air Room Air Room Air Intake and Output 10/26/19 10/26/19 10/27/19 15:00 23:00 07:00 Intake Total 800 ml 360 ml Output Total 200 ml 150 ml Balance 600 ml 210 ml Justicifation of Admission Dx: Justifications for Admission: Justification of Admission Dx: Yes BREANNA GAYTAN MD Oct 27, 2019 11:19
[2019-10-27 15:00] VITALS: BP 122/68
[2019-10-27 19:06] VITALS: BP 148/81
[2019-10-27] MEDS: LACTOBACILLUS RHAMNOSUS GG 1 CAPSULE. PO SCH (19:55)
[2019-10-27 23:00] VITALS: BP 215/102
[2019-10-28] MEDS: HYDROmorphone 12mg/30ml PCA 30 ML IV PRN (00:28)
[2019-10-28] MEDS: IV RINGERS,LACTATED 1000ML 1,000 ML IV SCH (01:12)
[2019-10-28 03:24] VITALS: BP 150/56
[2019-10-28] MEDS ORDERED: MAG HYDROX/ALUMINUM HYD/SIMETH 30 ML ORAL.SUSP PO PRN (05:45)
[2019-10-28] MEDS: PIPERACILLIN/TAZOBACTAM 3.375 GM in IV NORMAL SALINE 50ML 50 ML IV SCH ×3 (06:12→18:13)
[2019-10-28 06:39] LABS: BASO % 0 % (0-3); EOS # 0.2 x10^3/uL (0.0-0.7); EOS % 1 % (0-3); HEMATOCRIT 34.8 % (36.0-47.0); HEMOGLOBIN 11.7 g/dL (12.0-15.5); LYMPH % 19 % (24-48); MEAN CORPUSCULAR HEMOGLOBIN 33 pg (25-35); MEAN CORPUSCULAR HGB CONC 34 g/dL (31-37); MEAN CORPUSCULAR VOLUME 99 fL (79-100); MONO # 0.6 x10^3/uL (0.0-1.1); MONO % 4 % (0-9); NEUT # 12.1 x10^3/uL (1.8-7.7); NEUT % 76 % (31-73); PLATELET COUNT 202 x10^3/uL (140-400); RED BLOOD COUNT 3.53 x10^6/uL (3.50-5.40); RED CELL DISTRIBUTION WIDTH 13.1 % (11.5-14.5); WHITE BLOOD COUNT 15.9 x10^3/uL (4.0-11.0)
[2019-10-28 07:00] VITALS: BP 148/66
[2019-10-28 07:05] LABS: CALCIUM 8.4 mg/dL (8.5-10.1); CREATININE 0.7 mg/dL (0.6-1.0); GFR 91.3; POTASSIUM 3.3 mmol/L (3.5-5.1)
[2019-10-28] MEDS: LACTOBACILLUS RHAMNOSUS GG 1 CAPSULE. PO SCH ×2 (09:09→21:49)
[2019-10-28] MEDS: HEPARIN for SUB-Q USE 5,000 UNIT/ML VIAL. SQ SCH ×2 (09:17→22:00)
[2019-10-28] MEDS: ONDANSETRON PF 4 MG/2 ML VIAL. IVP PRN (09:19)
[2019-10-28] MEDS ORDERED: ACETAMINOPHEN 325 MG TABLET. PO PRN (10:30)
[2019-10-28 10:48] VITALS: BP 154/85
[2019-10-28] MEDS ORDERED: POTASSIUM CHLORIDE 20 MEQ TABLET.ER. PO ONE (11:00)
--- NOTE | 2019-10-28 11:08 | NUR ---
SW following. Discussed with RN, [employer] being stopped today, KUB ordered - still on clear liquid diet. Potential for discharge home with self care today. SW will continue to follow.
[2019-10-28] MEDS: KETOROLAC 30 MG/ML VIAL. IV PRN (11:59)
[2019-10-28] MEDS: PROCHLORPERAZINE 10 MG/2 ML VIAL. IV PRN (12:05)
--- NOTE | 2019-10-28 12:17 | PDOC ---
PROGRESS NOTES Chief Complaint Chief Complaint Acute appendicitis status post appendectomy POD #1 Obesity with a BMI of 39 Tobacco abuse Leukocytosis secondary to acute appendicitis Plan: labs in am pain management Incentive spirometry further recommendations based on clinical course. DVT prophylaxis: scd and teds History of Present Illness History of Present Illness pain worse overnight, started on [employer] for pain, still having pain will check KUB, gen surg following stool softeners as able Vitals Vitals Vital Signs Date Time Temp Pulse Resp B/P (MAP) Pulse Ox O2 Delivery O2 Flow Rate FiO2 10/28/19 10:48 98.0 100 19 154/85 (108) 91 Room Air 98.0 10/28/19 03:24 2.0 Physical Exam General: Alert, Oriented X3, Cooperative, mild distress, Other (obesity) Heart: Regular rate, Normal S1, Normal S2 Lungs: Clear Abdomen: Soft (tender with palpation) Extremities: No clubbing, No cyanosis Skin: No rashes, No breakdown Labs LABS Laboratory Tests Test 10/28/19 05:25 10/28/19 05:35 White Blood Count 15.9 x10^3/uL (4.0-11.0) Red Blood Count 3.53 x10^6/uL (3.50-5.40) Hemoglobin 11.7 g/dL (12.0-15.5) Hematocrit 34.8 % (36.0-47.0) Mean Corpuscular Volume 99 fL (79-100) Mean Corpuscular Hemoglobin 33 pg (25-35) Mean Corpuscular Hemoglobin Concent 34 g/dL (31-37) Red Cell Distribution Width 13.1 % (11.5-14.5) Platelet Count 202 x10^3/uL (140-400) Neutrophils (%) (Auto) 76 % (31-73) Lymphocytes (%) (Auto) 19 % (24-48) Monocytes (%) (Auto) 4 % (0-9) Eosinophils (%) (Auto) 1 % (0-3) Basophils (%) (Auto) 0 % (0-3) Neutrophils # (Auto) 12.1 x10^3/uL (1.8-7.7) Lymphocytes # (Auto) 3.0 x10^3/uL (1.0-4.8) Monocytes # (Auto) 0.6 x10^3/uL (0.0-1.1) Eosinophils # (Auto) 0.2 x10^3/uL (0.0-0.7) Basophils # (Auto) 0.0 x10^3/uL (0.0-0.2) Sodium Level 138 mmol/L (136-145) Potassium Level 3.3 mmol/L (3.5-5.1) Chloride Level 103 mmol/L (98-107) Carbon Dioxide Level 27 mmol/L (21-32) Anion Gap 8 (6-14) Blood Urea Nitrogen 8 mg/dL (7-20) Creatinine 0.7 mg/dL (0.6-1.0) Estimated GFR (Cockcroft-Gault) 91.3 Glucose Level 103 mg/dL (70-99) Calcium Level 8.4 mg/dL (8.5-10.1) Comment Review of Relevant I have reviewed the following items rod (where applicable) has been applied. Labs Laboratory Tests Test 10/26/19 17:37 10/27/19 02:45 10/28/19 05:25 10/28/19 05:35 Coronavirus (PCR) Not detected (Not Detected) SARS-CoV-2 Antigen (Rapid) Negative (NEGATIVE) White Blood Count 17.5 x10^3/uL (4.0-11.0) 15.9 x10^3/uL (4.0-11.0) Red Blood Count 4.18 x10^6/uL (3.50-5.40) 3.53 x10^6/uL (3.50-5.40) Hemoglobin 13.9 g/dL (12.0-15.5) 11.7 g/dL (12.0-15.5) Hematocrit 40.9 % (36.0-47.0) 34.8 % (36.0-47.0) Mean Corpuscular Volume 98 fL (79-100) 99 fL (79-100) Mean Corpuscular Hemoglobin 33 pg (25-35) 33 pg (25-35) Mean Corpuscular Hemoglobin Concent 34 g/dL (31-37) 34 g/dL (31-37) Red Cell Distribution Width 13.0 % (11.5-14.5) 13.1 % (11.5-14.5) Platelet Count 267 x10^3/uL (140-400) 202 x10^3/uL (140-400) Neutrophils (%) (Auto) 89 % (31-73) 76 % (31-73) Lymphocytes (%) (Auto) 7 % (24-48) 19 % (24-48) Monocytes (%) (Auto) 3 % (0-9) 4 % (0-9) Eosinophils (%) (Auto) 0 % (0-3) 1 % (0-3) Basophils (%) (Auto) 0 % (0-3) 0 % (0-3) Neutrophils # (Auto) 15.6 x10^3/uL (1.8-7.7) 12.1 x10^3/uL (1.8-7.7) Lymphocytes # (Auto) 1.3 x10^3/uL (1.0-4.8) 3.0 x10^3/uL (1.0-4.8) Monocytes # (Auto) 0.6 x10^3/uL (0.0-1.1) 0.6 x10^3/uL (0.0-1.1) Eosinophils # (Auto) 0.0 x10^3/uL (0.0-0.7) 0.2 x10^3/uL (0.0-0.7) Basophils # (Auto) 0.1 x10^3/uL (0.0-0.2) 0.0 x10^3/uL (0.0-0.2) Segmented Neutrophils % 74 % (35-66) Band Neutrophils % 15 % (0-9) Lymphocytes % 9 % (24-48) Monocytes % 2 % (0-10) Platelet Estimate Adequate (ADEQUATE) Sodium Level 138 mmol/L (136-145) Potassium Level 3.3 mmol/L (3.5-5.1) Chloride Level 103 mmol/L (98-107) Carbon Dioxide Level 27 mmol/L (21-32) Anion Gap 8 (6-14) Blood Urea Nitrogen 8 mg/dL (7-20) Creatinine 0.7 mg/dL (0.6-1.0) Estimated GFR (Cockcroft-Gault) 91.3 Glucose Level 103 mg/dL (70-99) Calcium Level 8.4 mg/dL (8.5-10.1) Laboratory Tests Test 10/28/19 05:25 10/28/19 05:35 White Blood Count 15.9 x10^3/uL (4.0-11.0) Red Blood Count 3.53 x10^6/uL (3.50-5.40) Hemoglobin 11.7 g/dL (12.0-15.5) Hematocrit 34.8 % (36.0-47.0) Mean Corpuscular Volume 99 fL (79-100) Mean Corpuscular Hemoglobin 33 pg (25-35) Mean Corpuscular Hemoglobin Concent 34 g/dL (31-37) Red Cell Distribution Width 13.1 % (11.5-14.5) Platelet Count 202 x10^3/uL (140-400) Neutrophils (%) (Auto) 76 % (31-73) Lymphocytes (%) (Auto) 19 % (24-48) Monocytes (%) (Auto) 4 % (0-9) Eosinophils (%) (Auto) 1 % (0-3) Basophils (%) (Auto) 0 % (0-3) Neutrophils # (Auto) 12.1 x10^3/uL (1.8-7.7) Lymphocytes # (Auto) 3.0 x10^3/uL (1.0-4.8) Monocytes # (Auto) 0.6 x10^3/uL (0.0-1.1) Eosinophils # (Auto) 0.2 x10^3/uL (0.0-0.7) Basophils # (Auto) 0.0 x10^3/uL (0.0-0.2) Sodium Level 138 mmol/L (136-145) Potassium Level 3.3 mmol/L (3.5-5.1) Chloride Level 103 mmol/L (98-107) Carbon Dioxide Level 27 mmol/L (21-32) Anion Gap 8 (6-14) Blood Urea Nitrogen 8 mg/dL (7-20) Creatinine 0.7 mg/dL (0.6-1.0) Estimated GFR (Cockcroft-Gault) 91.3 Glucose Level 103 mg/dL (70-99) Calcium Level 8.4 mg/dL (8.5-10.1) Medications Current Medications Propofol (Diprivan) 200 mg STK-MED ONCE IV ; Start 10/26/19 at 17:14; Stop 10/26/19 at 17:15; Status DC Lidocaine HCl (Lidocaine Pf 2% Vial) 5 ml STK-MED ONCE .ROUTE ; Start 10/26/19 at 17:14; Stop 10/26/19 at 17:15; Status DC Fentanyl Citrate (Fentanyl 2ml Vial) 100 mcg STK-MED ONCE .ROUTE ; Start 10/26/19 at 17:14; Stop 10/26/19 at 17:15; Status DC Rocuronium [place] (Zemuron) 50 mg STK-MED ONCE .ROUTE ; Start 10/26/19 at 17:14; Stop 10/26/19 at 17:15; Status DC Ondansetron HCl (Zofran) 4 mg PRN Q6HRS PRN IV NAUSEA/VOMITING; Start 10/26/19 at 17:30; Stop 10/27/19 at 17:29; Status DC Fentanyl Citrate (Fentanyl 2ml Vial) 25 mcg PRN Q5MIN PRN IV MILD PAIN 1-3; Start 10/26/19 at 17:30; Stop 10/27/19 at 17:29; Status DC Fentanyl Citrate (Fentanyl 2ml Vial) 50 mcg PRN Q5MIN PRN IV MODERATE TO SEVERE PAIN Last administered on 10/26/19at 19:35; Start 10/26/19 at 17:30; Stop 10/27/19 at 17:29; Status DC Morphine Sulfate (Morphine Sulfate) 1 mg PRN Q10MIN PRN IV SEVERE PAIN 7-10; Start 10/26/19 at 17:30; Stop 10/27/19 at 17:29; Status DC Ringer's Solution 1,000 ml @ 30 mls/hr Q24H IV Last administered on 10/26/19at 17:46; Start 10/26/19 at 17:24; Stop 10/27/19 at 05:23; Status DC Lidocaine HCl (Xylocaine-Mpf 1% 2ml Vial) 2 ml PRN 1X PRN ID PRIOR TO IV START; Start 10/26/19 at 17:30; Stop 10/27/19 at 17:29; Status DC Hydromorphone HCl (Dilaudid) 0.5 mg PRN Q10MIN PRN IV SEV PAIN, Second choice; Start 10/26/19 at 17:30; Stop 10/27/19 at 17:29; Status DC Prochlorperazine Edisylate (Compazine) 5 mg PACU PRN PRN IV NAUSEA, MRX1 Last administered on 10/26/19at 19:26; Start 10/26/19 at 17:30; Stop 10/27/19 at 17:29; Status DC Cefoxitin Sodium (Mefoxin) 2 gm 1X PREOP ONCE IVP Last administered on 10/26/19at 18:39; Start 10/26/19 at 17:45; Stop 10/26/19 at 17:46; Status DC Bupivacaine HCl/ Epinephrine Bitart (Sensorcain-Epi 0.5%-1:054066 Mpf) 30 ml STK-MED ONCE .ROUTE Last administered on 10/26/19at 18:12; Start 10/26/19 at 17:36; Stop 10/26/19 at 17:36; Status DC Fentanyl Citrate (Fentanyl 2ml Vial) 50 mcg 1X ONCE IVP Last administered on 10/26/19at 17:48; Start 10/26/19 at 17:45; Stop 10/26/19 at 17:46; Status DC Cefoxitin Sodium (Mefoxin) 1 gm STK-MED ONCE IVP ; Start 10/26/19 at 18:02; Stop 10/26/19 at 18:02; Status DC Dexamethasone Sodium Phosphate (Decadron) 4 mg STK-MED ONCE .ROUTE ; Start 10/26/19 at 18:38; Stop 10/26/19 at 18:39; Status DC Desflurane (Suprane) 30 ml STK-MED ONCE IH ; Start 10/26/19 at 18:38; Stop 10/26/19 at 18:39; Status DC Ondansetron HCl (Zofran) 4 mg STK-MED ONCE .ROUTE ; Start 10/26/19 at 18:38; Stop 10/26/19 at 18:39; Status DC Cefoxitin Sodium (Mefoxin) 1 gm STK-MED ONCE IVP ; Start 10/26/19 at 18:50; Stop 10/26/19 at 18:50; Status DC Neostigmine Methylsulfate (Bloxiverz) 10 mg STK-MED ONCE .ROUTE ; Start 10/26/19 at 18:58; Stop 10/26/19 at 18:58; Status DC Glycopyrrolate (Robinul) 1 mg STK-MED ONCE .ROUTE ; Start 10/26/19 at 18:58; Stop 10/26/19 at 18:59; Status DC Heparin Sodium (Porcine) (Heparin Sodium) 5,000 unit Q12HR SQ Last administered on 10/28/19at 09:17; Start 10/27/19 at 09:00 Sodium Chloride (Normal Saline Flush) 3 ml QSHIFT PRN IV AFTER MEDS AND BLOOD DRAWS; Start 10/26/19 at 19:15 Ringer's Solution 1,000 ml @ 100 mls/hr Q10H IV Last administered on 10/27/19at 17:45; Start 10/26/19 at 19:12; Stop 10/28/19 at 05:38; Status DC Acetaminophen/ Hydrocodone Bitart (Lortab 5/325) 1 tab PRN Q4HRS PRN PO MILD PAIN 1-3 Last administered on 10/27/19at 17:44; Start 10/26/19 at 19:15 Ketorolac Tromethamine (Toradol 30mg Vial) 30 mg PRN Q6HRS PRN IV MILD PAIN 1-3 Last administered on 10/27/19at 23:00; Start 10/26/19 at 19:15; Stop 10/31/19 at 19:14 Naloxone HCl (Narcan) 0.4 mg PRN Q2MIN PRN IV SEE INSTRUCTIONS; Start 10/26/19 at 19:15 Sodium Chloride 1,000 ml @ 25 mls/hr Q24H IV Last administered on 10/27/19at 00:28; Start 10/26/19 at 19:12 Morphine Sulfate (Morphine Sulfate) 1 mg PRN Q1HR PRN IV MODERATE-SEVERE PAIN Last administered on 10/27/19at 21:42; Start 10/26/19 at 19:15 Ondansetron HCl (Zofran) 4 mg PRN Q6HRS PRN IVP NAUESA, 1ST CHOICE Last administered on 10/28/19at 09:19; Start 10/26/19 at 19:15 Piperacillin Sod/ Tazobactam Sod 3.375 gm/Sodium Chloride 50 ml @ 100 mls/hr Q6HRS IV Last administered on 10/28/19at 12:01; Start 10/27/19 at 00:00 Fentanyl Citrate (Fentanyl 2ml Vial) 100 mcg STK-MED ONCE .ROUTE ; Start 10/26/19 at 19:24; Stop 10/26/19 at 19:24; Status DC Prochlorperazine Edisylate (Compazine) 10 mg STK-MED ONCE .ROUTE ; Start 10/26/19 at 19:24; Stop 10/26/19 at 19:24; Status DC Lactobacillus Rhamnosus (Culturelle) 1 cap BID PO Last administered on 10/28/19at 09:09; Start 10/27/19 at 21:00 Hydromorphone HCl 30 ml @ 0 mls/hr CONT PRN PRN IV PER PROTOCOL Last administered on 10/28/19at 00:28; Start 10/28/19 at 00:15 Al Hydroxide/Mg Hydroxide (Mylanta Plus Xs) 30 ml PRN Q2HR PRN PO HEARTBURN / GAS Last administered on 10/28/19at 06:12; Start 10/28/19 at 05:45 Acetaminophen (Tylenol) 650 mg PRN Q6HRS PRN PO FEVER; Start 10/28/19 at 10:30; Stop 10/28/19 at 12:09; Status DC Potassium Chloride (Klor-Con) 40 meq 1X ONCE PO Last administered on 10/28/19at 12:00; Start 10/28/19 at 11:00; Stop 10/28/19 at 11:01; Status DC Prochlorperazine Edisylate (Compazine) 10 mg PRN Q6HRS PRN IV NAUSEA/VOMITING Last administered on 10/28/19at 12:05; Start 10/28/19 at 12:00 Acetaminophen/ Aspirin/Caffeine (Excedrin Migraine) 1 tab PRN Q6HRS PRN PO MIGRAINE HEADACHE; Start 10/28/19 at 12:15 Vitals/I & O Vital Sign - Last 24 Hours 10/27/19 10/27/19 10/27/19 10/27/19 13:16 15:00 17:44 18:45 Temp 98.8 98.8 Pulse 110 Resp 18 18 19 19 B/P (MAP) 122/68 (86) Pulse Ox 90 90 90 90 O2 Delivery Room Air Room Air Room Air Room Air 10/27/19 10/27/19 10/27/19 7/28/20 19:06 19:47 20:00 20:17 Temp 98.5 98.5 Pulse 120 Resp B/P (MAP) 148/81 (103) Pulse Ox 92 92 92 O2 Delivery Nasal Cannula Room Air Room Air Room Air O2 Flow Rate 2.0 2.0 2.0 10/27/19 10/27/19 10/27/19 10/28/19 21:42 22:12 23:00 00:28 Temp 99.6 99.6 Pulse 136 Resp 18 18 B/P (MAP) 215/102 (139) Pulse Ox 92 92 92 92 O2 Delivery Room Air Room Air Room Air Room Air O2 Flow Rate 2.0 2.0 2.0 10/28/19 10/28/19 10/28/19 10/28/19 00:58 03:24 07:00 10:48 Temp 99.2 99.0 98.0 99.2 99.0 98.0 Pulse 128 127 100 Resp 18 19 B/P (MAP) 150/56 (87) 148/66 (93) 154/85 (108) Pulse Ox 92 92 91 91 O2 Delivery Room Air Nasal Cannula Room Air Room Air O2 Flow Rate 2.0 2.0 Intake and Output 10/27/19 10/27/19 10/28/19 15:00 23:00 07:00 Intake Total 720 ml 940 ml 300 ml Output Total 250 ml 900 ml Balance 720 ml 690 ml -600 ml Justicifation of Admission Dx: Justifications for Admission: Justification of Admission Dx: Yes GENNY FU MD Oct 28, 2019 12:17
--- NOTE | 2019-10-28 13:02 | RAD ---
PROCEDURE: KUB STUDY DATE: 10/28/2019 CLINICAL INDICATION / HISTORY: Reason: abd pain / Spl. Instructions: / History: . TECHNIQUE: Single AP image of the abdomen was obtained. COMPARISON: Abdomen and pelvis CT without IV contrast 10/26/2019 FINDINGS: The lung bases are clear. Gas-filled large bowel loops are present. No wall thickening, pneumatosis or evidence of portal venous gas. The small bowel loops are collapsed. Surgical clips in the right lower quadrant abdomen suggesting interval cholecystectomy noted. No organomegaly or pathologic calcifications are identified. No acute osseous abnormality. IMPRESSION: Possible colonic ileus following interval appendectomy. Electronically signed by: Michelle Luther MD (10/28/2019 12:59 PM) [id number]
--- NOTE | 2019-10-28 14:00 | PDOC ---
SURGICAL PROGRESS NOTE Subjective Pt with c/o abd pain, but improved, ambulating some now, some PO Vital Signs Vital Signs Date Time Temp Pulse Resp B/P (MAP) Pulse Ox O2 Delivery O2 Flow Rate FiO2 10/28/19 10:48 98.0 100 19 154/85 (108) 91 Room Air 98.0 10/28/19 03:24 2.0 I&O Intake and Output 10/28/19 07:00 Intake Total 1960 ml Output Total 1150 ml Balance 810 ml Intake Oral 1960 ml Output Urine Total 1150 ml # Voids 1 General: Alert, Oriented X3, Cooperative, mild distress Abdomen: Soft, Other (mild diffuse TTP) Labs Laboratory Tests Test 10/26/19 17:37 10/27/19 02:45 10/28/19 05:25 10/28/19 05:35 Coronavirus (PCR) Not detected (Not Detected) SARS-CoV-2 Antigen (Rapid) Negative (NEGATIVE) White Blood Count 17.5 x10^3/uL (4.0-11.0) 15.9 x10^3/uL (4.0-11.0) Red Blood Count 4.18 x10^6/uL (3.50-5.40) 3.53 x10^6/uL (3.50-5.40) Hemoglobin 13.9 g/dL (12.0-15.5) 11.7 g/dL (12.0-15.5) Hematocrit 40.9 % (36.0-47.0) 34.8 % (36.0-47.0) Mean Corpuscular Volume 98 fL (79-100) 99 fL (79-100) Mean Corpuscular Hemoglobin 33 pg (25-35) 33 pg (25-35) Mean Corpuscular Hemoglobin Concent 34 g/dL (31-37) 34 g/dL (31-37) Red Cell Distribution Width 13.0 % (11.5-14.5) 13.1 % (11.5-14.5) Platelet Count 267 x10^3/uL (140-400) 202 x10^3/uL (140-400) Neutrophils (%) (Auto) 89 % (31-73) 76 % (31-73) Lymphocytes (%) (Auto) 7 % (24-48) 19 % (24-48) Monocytes (%) (Auto) 3 % (0-9) 4 % (0-9) Eosinophils (%) (Auto) 0 % (0-3) 1 % (0-3) Basophils (%) (Auto) 0 % (0-3) 0 % (0-3) Neutrophils # (Auto) 15.6 x10^3/uL (1.8-7.7) 12.1 x10^3/uL (1.8-7.7) Lymphocytes # (Auto) 1.3 x10^3/uL (1.0-4.8) 3.0 x10^3/uL (1.0-4.8) Monocytes # (Auto) 0.6 x10^3/uL (0.0-1.1) 0.6 x10^3/uL (0.0-1.1) Eosinophils # (Auto) 0.0 x10^3/uL (0.0-0.7) 0.2 x10^3/uL (0.0-0.7) Basophils # (Auto) 0.1 x10^3/uL (0.0-0.2) 0.0 x10^3/uL (0.0-0.2) Segmented Neutrophils % 74 % (35-66) Band Neutrophils % 15 % (0-9) Lymphocytes % 9 % (24-48) Monocytes % 2 % (0-10) Platelet Estimate Adequate (ADEQUATE) Sodium Level 138 mmol/L (136-145) Potassium Level 3.3 mmol/L (3.5-5.1) Chloride Level 103 mmol/L (98-107) Carbon Dioxide Level 27 mmol/L (21-32) Anion Gap 8 (6-14) Blood Urea Nitrogen 8 mg/dL (7-20) Creatinine 0.7 mg/dL (0.6-1.0) Estimated GFR (Cockcroft-Gault) 91.3 Glucose Level 103 mg/dL (70-99) Calcium Level 8.4 mg/dL (8.5-10.1) Laboratory Tests Test 10/28/19 05:25 10/28/19 05:35 White Blood Count 15.9 x10^3/uL (4.0-11.0) Red Blood Count 3.53 x10^6/uL (3.50-5.40) Hemoglobin 11.7 g/dL (12.0-15.5) Hematocrit 34.8 % (36.0-47.0) Mean Corpuscular Volume 99 fL (79-100) Mean Corpuscular Hemoglobin 33 pg (25-35) Mean Corpuscular Hemoglobin Concent 34 g/dL (31-37) Red Cell Distribution Width 13.1 % (11.5-14.5) Platelet Count 202 x10^3/uL (140-400) Neutrophils (%) (Auto) 76 % (31-73) Lymphocytes (%) (Auto) 19 % (24-48) Monocytes (%) (Auto) 4 % (0-9) Eosinophils (%) (Auto) 1 % (0-3) Basophils (%) (Auto) 0 % (0-3) Neutrophils # (Auto) 12.1 x10^3/uL (1.8-7.7) Lymphocytes # (Auto) 3.0 x10^3/uL (1.0-4.8) Monocytes # (Auto) 0.6 x10^3/uL (0.0-1.1) Eosinophils # (Auto) 0.2 x10^3/uL (0.0-0.7) Basophils # (Auto) 0.0 x10^3/uL (0.0-0.2) Sodium Level 138 mmol/L (136-145) Potassium Level 3.3 mmol/L (3.5-5.1) Chloride Level 103 mmol/L (98-107) Carbon Dioxide Level 27 mmol/L (21-32) Anion Gap 8 (6-14) Blood Urea Nitrogen 8 mg/dL (7-20) Creatinine 0.7 mg/dL (0.6-1.0) Estimated GFR (Cockcroft-Gault) 91.3 Glucose Level 103 mg/dL (70-99) Calcium Level 8.4 mg/dL (8.5-10.1) Problem List s/p lap appendectomy cont abx OOB as tolerated will start MOM in AM Justicifation of Admission Dx: Justifications for Admission: Justification of Admission Dx: Yes KOKO STARK MD Oct 28, 2019 14:00
[2019-10-28 14:50] VITALS: BP 158/80
[2019-10-28] MEDS: ASA/APAP/CAFFEINE 250/250/65MG TABLET. PO PRN (16:49)
--- NOTE | 2019-10-28 17:07 | PATHOLOGY ---
[facility] Accession Number: [id number] . 01 Material submitted: . appendix - APPENDIX AND CONTENTS . 01 Clinical history: . Appendicitis . 02 Diagnosis: Appendix, laparoscopic appendectomy: - Acute appendicitis with focal serosal exudate. (JPM:[facility] 10/28/2019) [facility] 10/28/2019 1400 Local . 02 Comment: There is no evidence of malignancy. (JP:[facility] 10/28/2019) . 02 Electronically signed: . Homero Davis MD, Pathologist NPI- [id number] . 01 Gross description: . The specimen is received in formalin and is labeled "Ernesto, Fiorella, appendix and contents". The specimen consists of an appendix measuring 8.6 cm in length and ranges in diameter from 0.9 to 1.5 cm, with a moderate amount of attached mesoappendix. The serosal surface is dusky gaming-bradshaw in appearance with a small 0.3 cm defect identified, which is located 3.9 cm from the proximal margin. The serosal surface surrounding the defect is inked blue. The surgical margin is closed with a line of radha. The radha are removed and the new margin is inked black. Sectioning reveals a dilated lumen completely impacted with fecal material. The specimen is submitted representatively as follows: . A1 proximal margin and bisected tip A2 full-thickness cross-section through defect A3 additional cross-sections of appendix. (CAA; 10/27/2019) QAC/QA 10/28/2019 1359 Local . 02 Pathologist provided ICD-10: K35.80 . 02 CPT . 562128 Specimen Comment: A courtesy copy of this report has been sent to [phone], [phone] Specimen Comment: [id number] Specimen Comment: Report sent to / DR BARGER Performed at: [address] [facility], [place] [id number] MD Fabian Phillips MD Phone: [phone] [facility]formed [facility]: [facility] [address] [place], [place] [id number] MD Homero Davis MD Phone: [phone]
[2019-10-28] MEDS: LUBIPROSTONE 24 MCG CAPSULE PO SCH (18:12)
[2019-10-28 19:00] VITALS: BP 142/70
[2019-10-28] MEDS: IV NORMAL SALINE 1000ML BAG 1,000 ML IV SCH (19:12)
[2019-10-28 23:00] VITALS: BP 136/86
[2019-10-29] MEDS: ASA/APAP/CAFFEINE 250/250/65MG TABLET. PO PRN ×3 (00:22→15:48)
[2019-10-29] MEDS: PIPERACILLIN/TAZOBACTAM 3.375 GM in IV NORMAL SALINE 50ML 50 ML IV SCH ×4 (00:23→17:28)
[2019-10-29 03:00] VITALS: BP 124/73
[2019-10-29] MEDS: HYDROmorphone 12mg/30ml PCA 30 ML IV PRN (06:27)
[2019-10-29 07:00] VITALS: BP 124/83
[2019-10-29] MEDS ORDERED: MAGNESIUM HYDROXIDE 2,400 MG/30 ML ORAL.SUSP. PO PRN (08:00)
[2019-10-29] MEDS: KETOROLAC 30 MG/ML VIAL. IV PRN ×3 (08:15→23:12)
[2019-10-29] MEDS: LUBIPROSTONE 24 MCG CAPSULE PO SCH ×2 (08:15→17:27)
[2019-10-29] MEDS: LACTOBACILLUS RHAMNOSUS GG 1 CAPSULE. PO SCH ×2 (08:15→20:44)
[2019-10-29] MEDS: HEPARIN for SUB-Q USE 5,000 UNIT/ML VIAL. SQ SCH ×2 (08:19→20:59)
--- NOTE | 2019-10-29 09:27 | PDOC ---
SURGICAL PROGRESS NOTE Subjective not much flatus urine is dark no emesis Vital Signs Vital Signs Date Time Temp Pulse Resp B/P (MAP) Pulse Ox O2 Delivery O2 Flow Rate FiO2 10/29/19 07:00 97.8 122 16 124/83 (97) 83 Room Air 97.8 I&O Intake and Output 10/29/19 07:00 Intake Total 2830 ml Output Total 1800 ml Balance 1030 ml Intake Oral 1630 ml IV Total 1200 ml Output Urine Total 1800 ml # Voids 1 General: Alert, Oriented X3, Cooperative Abdomen: Soft, Other (lap dressings dry, incisoinal TTP) Labs Laboratory Tests Test 10/28/19 05:25 10/28/19 05:35 White Blood Count 15.9 x10^3/uL (4.0-11.0) Red Blood Count 3.53 x10^6/uL (3.50-5.40) Hemoglobin 11.7 g/dL (12.0-15.5) Hematocrit 34.8 % (36.0-47.0) Mean Corpuscular Volume 99 fL (79-100) Mean Corpuscular Hemoglobin 33 pg (25-35) Mean Corpuscular Hemoglobin Concent 34 g/dL (31-37) Red Cell Distribution Width 13.1 % (11.5-14.5) Platelet Count 202 x10^3/uL (140-400) Neutrophils (%) (Auto) 76 % (31-73) Lymphocytes (%) (Auto) 19 % (24-48) Monocytes (%) (Auto) 4 % (0-9) Eosinophils (%) (Auto) 1 % (0-3) Basophils (%) (Auto) 0 % (0-3) Neutrophils # (Auto) 12.1 x10^3/uL (1.8-7.7) Lymphocytes # (Auto) 3.0 x10^3/uL (1.0-4.8) Monocytes # (Auto) 0.6 x10^3/uL (0.0-1.1) Eosinophils # (Auto) 0.2 x10^3/uL (0.0-0.7) Basophils # (Auto) 0.0 x10^3/uL (0.0-0.2) Sodium Level 138 mmol/L (136-145) Potassium Level 3.3 mmol/L (3.5-5.1) Chloride Level 103 mmol/L (98-107) Carbon Dioxide Level 27 mmol/L (21-32) Anion Gap 8 (6-14) Blood Urea Nitrogen 8 mg/dL (7-20) Creatinine 0.7 mg/dL (0.6-1.0) Estimated GFR (Cockcroft-Gault) 91.3 Glucose Level 103 mg/dL (70-99) Calcium Level 8.4 mg/dL (8.5-10.1) Assessment/Plan s/p appy need to dc IV meds--ileus on xrays, narcotics will worsen, needs to ambulate Justicifation of Admission Dx: Justifications for Admission: Justification of Admission Dx: Yes NARCISO DE LUNA [employer] 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
[2019-10-29 09:34] LABS: BASO # 0.1 x10^3/uL (0.0-0.2); BASO % 0 % (0-3); EOS # 0.8 x10^3/uL (0.0-0.7); EOS % 5 % (0-3); HEMATOCRIT 34.3 % (36.0-47.0); HEMOGLOBIN 11.5 g/dL (12.0-15.5); LYMPH # 2.3 x10^3/uL (1.0-4.8); LYMPH % 13 % (24-48); MEAN CORPUSCULAR HEMOGLOBIN 33 pg (25-35); MEAN CORPUSCULAR HGB CONC 34 g/dL (31-37); MEAN CORPUSCULAR VOLUME 98 fL (79-100); MONO # 0.8 x10^3/uL (0.0-1.1); MONO % 4 % (0-9); NEUT # 13.9 x10^3/uL (1.8-7.7); NEUT % 78 % (31-73); PLATELET COUNT 243 x10^3/uL (140-400); RED BLOOD COUNT 3.51 x10^6/uL (3.50-5.40); RED CELL DISTRIBUTION WIDTH 12.7 % (11.5-14.5); WHITE BLOOD COUNT 17.8 x10^3/uL (4.0-11.0)
[2019-10-29] MEDS ORDERED: TRAM-48 PO (09:44)
[2019-10-29] MEDS ORDERED: DOCU-109 PO (09:47)
[2019-10-29] MEDS ORDERED: MAGN400O7 PO (09:47)
[2019-10-29 11:00] VITALS: BP 124/72
--- NOTE | 2019-10-29 11:07 | NUR ---
SW following. Discussed with RN, pt from home, clear liquid diet. Pt has post op ileus. RN advised no SW needs, discharge order for home today. SW will continue to follow, should any discharge needs arise.
[2019-10-29] MEDS ORDERED: IOHEXOL 240 MG/ML 50ML VIAL. PO ONE (11:15)
[2019-10-29] MEDS ORDERED: IOHEXOL 300 MG/ML 100ML VIAL. IV ONE (11:15)
[2019-10-29] MEDS: PROCHLORPERAZINE 10 MG/2 ML VIAL. IV PRN (11:43)
--- NOTE | 2019-10-29 12:48 | PDOC ---
PROGRESS NOTES Chief Complaint Chief Complaint Acute appendicitis status post appendectomy POD #1 Obesity with a BMI of 39 Tobacco abuse Leukocytosis secondary to acute appendicitis Plan: labs in am pain management Incentive spirometry further recommendations based on clinical course. 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, ambulate as able still tachycardia, white count still high gen surg following, CT ordered, will follow try to DC soon 10/27 pain worse overnight, started on ARMATURE INSPECTOR for pain, still having pain will check KUB, gen surg following stool softeners as able Vitals Vitals Vital Signs Date Time Temp Pulse Resp B/P (MAP) Pulse Ox O2 Delivery O2 Flow Rate FiO2 10/29/19 11:00 97.8 110 18 124/72 (89) 92 Room Air 97.8 Physical Exam General: Alert, Oriented X3, Cooperative Heart: Regular rate, Normal S1, Normal S2 Lungs: Clear Abdomen: Soft, Other (lap dressings dry, incisoinal TTP) Extremities: No clubbing, No cyanosis Skin: No rashes, No breakdown Labs LABS Laboratory Tests Test 10/29/19 09:25 White Blood Count 17.8 x10^3/uL (4.0-11.0) Red Blood Count 3.51 x10^6/uL (3.50-5.40) Hemoglobin 11.5 g/dL (12.0-15.5) Hematocrit 34.3 % (36.0-47.0) Mean Corpuscular Volume 98 fL (79-100) Mean Corpuscular Hemoglobin 33 pg (25-35) Mean Corpuscular Hemoglobin Concent 34 g/dL (31-37) Red Cell Distribution Width 12.7 % (11.5-14.5) Platelet Count 243 x10^3/uL (140-400) Neutrophils (%) (Auto) 78 % (31-73) Lymphocytes (%) (Auto) 13 % (24-48) Monocytes (%) (Auto) 4 % (0-9) Eosinophils (%) (Auto) 5 % (0-3) Basophils (%) (Auto) 0 % (0-3) Neutrophils # (Auto) 13.9 x10^3/uL (1.8-7.7) Lymphocytes # (Auto) 2.3 x10^3/uL (1.0-4.8) Monocytes # (Auto) 0.8 x10^3/uL (0.0-1.1) Eosinophils # (Auto) 0.8 x10^3/uL (0.0-0.7) Basophils # (Auto) 0.1 x10^3/uL (0.0-0.2) Comment Review of Relevant I have reviewed the following items rod (where applicable) has been applied. Labs Laboratory Tests Test 10/28/19 05:25 10/28/19 05:35 10/29/19 09:25 White Blood Count 15.9 x10^3/uL (4.0-11.0) 17.8 x10^3/uL (4.0-11.0) Red Blood Count 3.53 x10^6/uL (3.50-5.40) 3.51 x10^6/uL (3.50-5.40) Hemoglobin 11.7 g/dL (12.0-15.5) 11.5 g/dL (12.0-15.5) Hematocrit 34.8 % (36.0-47.0) 34.3 % (36.0-47.0) Mean Corpuscular Volume 99 fL (79-100) 98 fL (79-100) Mean Corpuscular Hemoglobin 33 pg (25-35) 33 pg (25-35) Mean Corpuscular Hemoglobin Concent 34 g/dL (31-37) 34 g/dL (31-37) Red Cell Distribution Width 13.1 % (11.5-14.5) 12.7 % (11.5-14.5) Platelet Count 202 x10^3/uL (140-400) 243 x10^3/uL (140-400) Neutrophils (%) (Auto) 76 % (31-73) 78 % (31-73) Lymphocytes (%) (Auto) 19 % (24-48) 13 % (24-48) Monocytes (%) (Auto) 4 % (0-9) 4 % (0-9) Eosinophils (%) (Auto) 1 % (0-3) 5 % (0-3) Basophils (%) (Auto) 0 % (0-3) 0 % (0-3) Neutrophils # (Auto) 12.1 x10^3/uL (1.8-7.7) 13.9 x10^3/uL (1.8-7.7) Lymphocytes # (Auto) 3.0 x10^3/uL (1.0-4.8) 2.3 x10^3/uL (1.0-4.8) Monocytes # (Auto) 0.6 x10^3/uL (0.0-1.1) 0.8 x10^3/uL (0.0-1.1) Eosinophils # (Auto) 0.2 x10^3/uL (0.0-0.7) 0.8 x10^3/uL (0.0-0.7) Basophils # (Auto) 0.0 x10^3/uL (0.0-0.2) 0.1 x10^3/uL (0.0-0.2) Sodium Level 138 mmol/L (136-145) Potassium Level 3.3 mmol/L (3.5-5.1) Chloride Level 103 mmol/L (98-107) Carbon Dioxide Level 27 mmol/L (21-32) Anion Gap 8 (6-14) Blood Urea Nitrogen 8 mg/dL (7-20) Creatinine 0.7 mg/dL (0.6-1.0) Estimated GFR (Cockcroft-Gault) 91.3 Glucose Level 103 mg/dL (70-99) Calcium Level 8.4 mg/dL (8.5-10.1) Laboratory Tests Test 10/29/19 09:25 White Blood Count 17.8 x10^3/uL (4.0-11.0) Red Blood Count 3.51 x10^6/uL (3.50-5.40) Hemoglobin 11.5 g/dL (12.0-15.5) Hematocrit 34.3 % (36.0-47.0) Mean Corpuscular Volume 98 fL (79-100) Mean Corpuscular Hemoglobin 33 pg (25-35) Mean Corpuscular Hemoglobin Concent 34 g/dL (31-37) Red Cell Distribution Width 12.7 % (11.5-14.5) Platelet Count 243 x10^3/uL (140-400) Neutrophils (%) (Auto) 78 % (31-73) Lymphocytes (%) (Auto) 13 % (24-48) Monocytes (%) (Auto) 4 % (0-9) Eosinophils (%) (Auto) 5 % (0-3) Basophils (%) (Auto) 0 % (0-3) Neutrophils # (Auto) 13.9 x10^3/uL (1.8-7.7) Lymphocytes # (Auto) 2.3 x10^3/uL (1.0-4.8) Monocytes # (Auto) 0.8 x10^3/uL (0.0-1.1) Eosinophils # (Auto) 0.8 x10^3/uL (0.0-0.7) Basophils # (Auto) 0.1 x10^3/uL (0.0-0.2) Medications Current Medications Propofol (Diprivan) 200 mg STK-MED ONCE IV ; Start 10/26/19 at 17:14; Stop 10/26/19 at 17:15; Status DC Lidocaine HCl (Lidocaine Pf 2% Vial) 5 ml STK-MED ONCE .ROUTE ; Start 10/26/19 at 17:14; Stop 10/26/19 at 17:15; Status DC Fentanyl Citrate (Fentanyl 2ml Vial) 100 mcg STK-MED ONCE .ROUTE ; Start 10/26/19 at 17:14; Stop 10/26/19 at 17:15; Status DC Rocuronium [place] (Zemuron) 50 mg STK-MED ONCE .ROUTE ; Start 10/26/19 at 17:14; Stop 10/26/19 at 17:15; Status DC Ondansetron HCl (Zofran) 4 mg PRN Q6HRS PRN IV NAUSEA/VOMITING; Start 10/26/19 at 17:30; Stop 10/27/19 at 17:29; Status DC Fentanyl Citrate (Fentanyl 2ml Vial) 25 mcg PRN Q5MIN PRN IV MILD PAIN 1-3; Start 10/26/19 at 17:30; Stop 10/27/19 at 17:29; Status DC Fentanyl Citrate (Fentanyl 2ml Vial) 50 mcg PRN Q5MIN PRN IV MODERATE TO SEVERE PAIN Last administered on 10/26/19at 19:35; Start 10/26/19 at 17:30; Stop 10/27/19 at 17:29; Status DC Morphine Sulfate (Morphine Sulfate) 1 mg PRN Q10MIN PRN IV SEVERE PAIN 7-10; Start 10/26/19 at 17:30; Stop 10/27/19 at 17:29; Status DC Ringer's Solution 1,000 ml @ 30 mls/hr Q24H IV Last administered on 10/26/19at 17:46; Start 10/26/19 at 17:24; Stop 10/27/19 at 05:23; Status DC Lidocaine HCl (Xylocaine-Mpf 1% 2ml Vial) 2 ml PRN 1X PRN ID PRIOR TO IV START; Start 10/26/19 at 17:30; Stop 10/27/19 at 17:29; Status DC Hydromorphone HCl (Dilaudid) 0.5 mg PRN Q10MIN PRN IV SEV PAIN, Second choice; Start 10/26/19 at 17:30; Stop 10/27/19 at 17:29; Status DC Prochlorperazine Edisylate (Compazine) 5 mg PACU PRN PRN IV NAUSEA, MRX1 Last administered on 10/26/19at 19:26; Start 10/26/19 at 17:30; Stop 10/27/19 at 17:29; Status DC Cefoxitin Sodium (Mefoxin) 2 gm 1X PREOP ONCE IVP Last administered on 10/26/19at 18:39; Start 10/26/19 at 17:45; Stop 10/26/19 at 17:46; Status DC Bupivacaine HCl/ Epinephrine Bitart (Sensorcain-Epi 0.5%-1:[id number] Mpf) 30 ml STK-MED ONCE .ROUTE Last administered on 10/26/19at 18:12; Start 10/26/19 at 17:36; Stop 10/26/19 at 17:36; Status DC Fentanyl Citrate (Fentanyl 2ml Vial) 50 mcg 1X ONCE IVP Last administered on 10/26/19at 17:48; Start 10/26/19 at 17:45; Stop 10/26/19 at 17:46; Status DC Cefoxitin Sodium (Mefoxin) 1 gm STK-MED ONCE IVP ; Start 10/26/19 at 18:02; Stop 10/26/19 at 18:02; Status DC Dexamethasone Sodium Phosphate (Decadron) 4 mg STK-MED ONCE .ROUTE ; Start 10/26/19 at 18:38; Stop 10/26/19 at 18:39; Status DC Desflurane (Suprane) 30 ml STK-MED ONCE IH ; Start 10/26/19 at 18:38; Stop 10/26/19 at 18:39; Status DC Ondansetron HCl (Zofran) 4 mg STK-MED ONCE .ROUTE ; Start 10/26/19 at 18:38; Stop 10/26/19 at 18:39; Status DC Cefoxitin Sodium (Mefoxin) 1 gm STK-MED ONCE IVP ; Start 10/26/19 at 18:50; Stop 10/26/19 at 18:50; Status DC Neostigmine Methylsulfate (Bloxiverz) 10 mg STK-MED ONCE .ROUTE ; Start 10/26/19 at 18:58; Stop 10/26/19 at 18:58; Status DC Glycopyrrolate (Robinul) 1 mg STK-MED ONCE .ROUTE ; Start 10/26/19 at 18:58; Stop 10/26/19 at 18:59; Status DC Heparin Sodium (Porcine) (Heparin Sodium) 5,000 unit Q12HR SQ Last administered on 10/29/19at 08:19; Start 10/27/19 at 09:00 Sodium Chloride (Normal Saline Flush) 3 ml QSHIFT PRN IV AFTER MEDS AND BLOOD DRAWS; Start 10/26/19 at 19:15 Ringer's Solution 1,000 ml @ 100 mls/hr Q10H IV Last administered on 10/27/19at 17:45; Start 10/26/19 at 19:12; Stop 10/28/19 at 05:38; Status DC Acetaminophen/ Hydrocodone Bitart (Lortab 5/325) 1 tab PRN Q4HRS PRN PO MILD PAIN 1-3 Last administered on 10/27/19at 17:44; Start 10/26/19 at 19:15 Ketorolac Tromethamine (Toradol 30mg Vial) 30 mg PRN Q6HRS PRN IV MILD PAIN 1-3 Last administered on 10/29/19at 08:15; Start 10/26/19 at 19:15; Stop 10/31/19 at 19:14 Naloxone HCl (Narcan) 0.4 mg PRN Q2MIN PRN IV SEE INSTRUCTIONS; Start 10/26/19 at 19:15 Sodium Chloride 1,000 ml @ 25 mls/hr Q24H IV Last administered on 10/27/19at 00:28; Start 10/26/19 at 19:12 Morphine Sulfate (Morphine Sulfate) 1 mg PRN Q1HR PRN IV MODERATE-SEVERE PAIN Last administered on 10/27/19at 21:42; Start 10/26/19 at 19:15; Stop 10/29/19 at 06:06; Status DC Ondansetron HCl (Zofran) 4 mg PRN Q6HRS PRN IVP NAUESA, 1ST CHOICE Last administered on 10/28/19at 09:19; Start 10/26/19 at 19:15 Piperacillin Sod/ Tazobactam Sod 3.375 gm/Sodium Chloride 50 ml @ 100 mls/hr Q6HRS IV Last administered on 10/29/19at 06:06; Start 10/27/19 at 00:00 Fentanyl Citrate (Fentanyl 2ml Vial) 100 mcg STK-MED ONCE .ROUTE ; Start 10/26/19 at 19:24; Stop 10/26/19 at 19:24; Status DC Prochlorperazine Edisylate (Compazine) 10 mg STK-MED ONCE .ROUTE ; Start 10/26/19 at 19:24; Stop 10/26/19 at 19:24; Status DC Lactobacillus Rhamnosus (Culturelle) 1 cap BID PO Last administered on 10/29/19at 08:15; Start 10/27/19 at 21:00 Hydromorphone HCl 30 ml @ 0 mls/hr CONT PRN PRN IV PER PROTOCOL Last administered on 10/29/19at 06:27; Start 10/28/19 at 00:15; Stop 10/29/19 at 09:06; Status DC Al Hydroxide/Mg Hydroxide (Mylanta Plus Xs) 30 ml PRN Q2HR PRN PO HEARTBURN / GAS Last administered on 10/28/19at 06:12; Start 10/28/19 at 05:45 Acetaminophen (Tylenol) 650 mg PRN Q6HRS PRN PO FEVER; Start 10/28/19 at 10:30; Stop 10/28/19 at 12:09; Status DC Potassium Chloride (Klor-Con) 40 meq 1X ONCE PO Last administered on 10/28/19at 12:00; Start 10/28/19 at 11:00; Stop 10/28/19 at 11:01; Status DC Prochlorperazine Edisylate (Compazine) 10 mg PRN Q6HRS PRN IV NAUSEA/VOMITING, 2nd CHOICE Last administered on 10/29/19at 11:43; Start 10/28/19 at 12:00 Acetaminophen/ Aspirin/Caffeine (Excedrin Migraine) 1 tab PRN Q6HRS PRN PO MIGRAINE HEADACHE Last administered on 10/29/19at 06:29; Start 10/28/19 at 12:15 Magnesium Hydroxide (Milk Of Magnesia) 2,400 mg PRN DAILY PRN PO CONSTIPATION Last administered on 10/29/19at 08:20; Start 10/29/19 at 08:00 Lubiprostone (Amitiza) 24 mcg BIDWMEALS PO Last administered on 10/29/19at 08:15; Start 10/28/19 at 17:00 Iohexol (Omnipaque 240 Mg/ml) 30 ml 1X ONCE PO Last administered on 10/29/19at 11:15; Start 10/29/19 at 11:15; Stop 10/29/19 at 11:16; Status DC Iohexol (Omnipaque 300 Mg/ml) 754 ml 1X ONCE IV Last administered on 10/29/19at 11:15; Start 10/29/19 at 11:15; Stop 10/29/19 at 11:16; Status DC Active Scripts Active Colace (Docusate Sodium) 100 Mg Capsule 100 Mg PO BID Milk Of Magnesia (Magnesium Hydroxide) 400 Mg/5 Ml Oral.susp 2,400 Mg PO PRN DAILY PRN Ultram (Tramadol Hcl) 50 Mg Tablet 1 Tab PO TID PRN PRN MDD 2 Tablet(s) 5 Days Vitals/I & O Vital Sign - Last 24 Hours 10/28/19 10/28/19 10/28/19 10/28/19 14:50 19:00 20:00 23:00 Temp 97.9 98.6 98.7 97.9 98.6 98.7 Pulse 90 132 121 Resp 19 20 17 B/P (MAP) 158/80 (106) 142/70 (94) 136/86 (103) Pulse Ox 91 90 90 O2 Delivery Room Air Room Air Room Air Room Air 7/30/20 7/30/20 7/30/20 7/30/20 03:00 06:27 07:00 07:00 Temp 98.5 97.8 98.5 97.8 Pulse 120 122 Resp 19 16 16 16 B/P (MAP) 124/73 (90) 124/83 (97) Pulse Ox 91 83 O2 Delivery Room Air Room Air Room Air Room Air 10/29/19 11:00 Temp 97.8 97.8 Pulse 110 Resp 18 B/P (MAP) 124/72 (89) Pulse Ox 92 O2 Delivery Room Air Intake and Output 10/28/19 10/28/19 10/29/19 15:00 23:00 07:00 Intake Total 600 ml 2230 ml Output Total 250 ml 1250 ml 300 ml Balance -250 ml -650 ml 1930 ml Justicifation of Admission Dx: Justifications for Admission: Justification of Admission Dx: Yes GENNY FU MD Oct 29, 2019 12:48
[2019-10-29 14:41] VITALS: BP 122/68
--- NOTE | 2019-10-29 14:58 | RAD ---
CT study of the abdomen and pelvis with contrast Clinical indications: Status post appendectomy. Elevated white blood cell count. TECHNIQUE: After IV infusion of 75 cc of Optiray 300, helical CT scanning of the abdomen and pelvis was performed. GI contrast was administered per mouth. COMPARISON: None available. FINDINGS: The liver and spleen and pancreas and gallbladder are normal. No extrahepatic biliary ductal dilatation is seen. No adrenal mass is evident. Both kidneys are normal. Urinary bladder is distended. Urinary bladder wall is smooth. No uterine mass is seen. No dominant ovarian cyst or mass is evident. There is mild colonic dilatation. The appendix is surgically absent. There is an elliptical fluid collection within the right lower quadrant of the abdomen lateral and posterior to the cecum. This measures 3.7 cm in greatest dimension. This may represent a small postoperative fluid collection or abscess. Just superior and medial to this fluid collection is an ovoid density measuring 67 Hounsfield units and may represent postoperative hematoma. This measures 2.4 cm in greatest dimension. There is another fluid collection seen more medially and located between loops of bowel measuring 4.5 cm in greatest dimension. There are free bubbles of air within the anterior abdominal wall musculature consistent with the recent surgery. Small pockets of free intraperitoneal air are seen secondary to recent surgery. No focal aneurysmal dilatation of the abdominal aorta is seen. No enlarged abdominal or pelvic lymphadenopathy is evident. No significant pleural effusion is seen. There is a consolidative infiltrate within the posterior medial aspect of the right lower lobe. Atelectasis of the left lung base is seen. No lytic process is seen. IMPRESSION: Recent appendectomy. There are 2 postoperative fluid collections or abscesses within the right lower quadrant of the abdomen. Small postoperative hematoma is seen within the right lower quadrant. Urinary bladder distention. Consolidative infiltrate within the medial aspect of the right lower lobe. Electronically signed by: Quinton Smith MD (10/29/2019 2:55 PM) [id number]
[2019-10-29] MEDS: HYDROcodone/APAP 5/325MG 1 TAB TABLET PO PRN ×2 (15:34→19:57)
--- NOTE | 2019-10-29 15:42 | PDOC ---
Provider Note Provider Note IR NOTE CT reviewed. Fluid adjacent to cecum is mall, and does not appear to me to be organized. Small collection sandwiched between right ovary, small bowel, and sigmoid colon is inaccessible, but is of a size that will likely resolve with antibiotic therapy. Recommend re-evaluation with CT in 2 weeks. Justicifation of Admission Dx: Justifications for Admission: Justification of Admission Dx: Yes FREDIS SMITH MD Oct 29, 2019 15:42
[2019-10-29] MEDS: fentaNYL PF VIAL 100 MCG/2 ML VIAL IVP PRN ×3 (17:27→23:12)
[2019-10-29 19:45] VITALS: BP 150/80
[2019-10-29] MEDS: IV NORMAL SALINE 1000ML BAG 1,000 ML IV SCH (23:11)
[2019-10-29] MEDS: ONDANSETRON PF 4 MG/2 ML VIAL. IVP PRN (23:24)
[2019-10-29 23:28] VITALS: BP 144/81
[2019-10-30] MEDS: PIPERACILLIN/TAZOBACTAM 3.375 GM in IV NORMAL SALINE 50ML 50 ML IV SCH ×5 (00:15→23:56)
[2019-10-30] MEDS: HYDROcodone/APAP 5/325MG 1 TAB TABLET PO PRN ×5 (01:21→23:58)
[2019-10-30] MEDS: fentaNYL PF VIAL 100 MCG/2 ML VIAL IVP PRN ×4 (01:25→21:39)
[2019-10-30 03:57] VITALS: BP 132/82
[2019-10-30] MEDS: ASA/APAP/CAFFEINE 250/250/65MG TABLET. PO PRN (06:28)
[2019-10-30 07:00] VITALS: BP 128/85
[2019-10-30] MEDS: LUBIPROSTONE 24 MCG CAPSULE PO SCH ×3 (08:00→16:59)
[2019-10-30] MEDS: LACTOBACILLUS RHAMNOSUS GG 1 CAPSULE. PO SCH ×2 (08:34→19:54)
[2019-10-30] MEDS: HEPARIN for SUB-Q USE 5,000 UNIT/ML VIAL. SQ SCH ×2 (08:40→20:03)
--- NOTE | 2019-10-30 10:03 | NUR ---
SW following. Discussed with RN, physician note states follow up CT in 2 weeks. RN advised no SW needs, discharge order from yesterday (10/29/2019). SW will continue to follow.
[2019-10-30] MEDS: KETOROLAC 30 MG/ML VIAL. IV PRN ×2 (10:24→17:30)
--- NOTE | 2019-10-30 10:28 | PDOC ---
SURGICAL PROGRESS NOTE Subjective tolerating diet + stools ambulating using IS Vital Signs Vital Signs Date Time Temp Pulse Resp B/P (MAP) Pulse Ox O2 Delivery O2 Flow Rate FiO2 10/30/19 08:36 Room Air 10/30/19 07:00 98.0 111 18 128/85 (99) 90 98.0 10/29/19 17:27 2.0 I&O Intake and Output 10/30/19 07:00 Output Total 650 ml Balance -650 ml Output Urine Total 650 ml # Voids 6 # Bowel Movements 3 General: Alert, Oriented X3, Cooperative Abdomen: Soft, Other (TTP lap sites ) Labs Laboratory Tests Test 10/29/19 09:25 White Blood Count 17.8 x10^3/uL (4.0-11.0) Red Blood Count 3.51 x10^6/uL (3.50-5.40) Hemoglobin 11.5 g/dL (12.0-15.5) Hematocrit 34.3 % (36.0-47.0) Mean Corpuscular Volume 98 fL (79-100) Mean Corpuscular Hemoglobin 33 pg (25-35) Mean Corpuscular Hemoglobin Concent 34 g/dL (31-37) Red Cell Distribution Width 12.7 % (11.5-14.5) Platelet Count 243 x10^3/uL (140-400) Neutrophils (%) (Auto) 78 % (31-73) Lymphocytes (%) (Auto) 13 % (24-48) Monocytes (%) (Auto) 4 % (0-9) Eosinophils (%) (Auto) 5 % (0-3) Basophils (%) (Auto) 0 % (0-3) Neutrophils # (Auto) 13.9 x10^3/uL (1.8-7.7) Lymphocytes # (Auto) 2.3 x10^3/uL (1.0-4.8) Monocytes # (Auto) 0.8 x10^3/uL (0.0-1.1) Eosinophils # (Auto) 0.8 x10^3/uL (0.0-0.7) Basophils # (Auto) 0.1 x10^3/uL (0.0-0.2) Assessment/Plan small fluid collection continue abx, cbc in AM if improved possible DC tomorrow on oral abx Justicifation of Admission Dx: Justifications for Admission: Justification of Admission Dx: Yes NARCISO DE LUNA [employer] Oct 30, 2019 10:28
--- NOTE | 2019-10-30 10:39 | CONS ---
DATE OF CONSULTATION: 10/30/2019 PULMONARY CONSULTATION ATTENDING PHYSICIAN: Dr. Peterson. REASON FOR CONSULTATION: Abnormal CT, possible pneumonia and tobacco use. HISTORY OF PRESENT ILLNESS: The patient is a 44-year-old obese patient with a BMI of 39.8. She presented with abdominal pain and was seen by Surgery, Dr. Casillas. She had an abnormal CT abdomen and pelvis suggestive of acute appendicitis. She underwent laparoscopic appendectomy. She had a CT abdomen and pelvis performed on 10/29/2019, which was reviewed by me with lower sections of the lungs. The patient has evidence of right lower lobe atelectasis posteromedially. She says she has an occasional cough with light borden sputum production. This is her smoker's cough she says. She smoked for 37 years. She has been afebrile. Denies any shortness of breath. She remains on room air. Her CT abdomen and pelvis also suggestive of postop fluid collection or abscesses within the right lower quadrant of the abdomen. PAST MEDICAL HISTORY: Significant for tobacco use, suspect underlying COPD. PAST SURGICAL HISTORY: Recent surgery is appendectomy. ALLERGIES: None. MEDICATIONS: Reviewed as listed in the MRAD including antibiotics, Zosyn. REVIEW OF SYSTEMS: As discussed in my history of present illness, otherwise noncontributory. SOCIAL HISTORY: Smoked for 37 years. PHYSICAL EXAMINATION: VITAL SIGNS: Reviewed. Afebrile. NECK: Supple. LUNGS: With diminished breath sounds. CARDIOVASCULAR: With a regular rate. ABDOMEN: Soft, obese and tender. EXTREMITIES: With no pitting edema. LABORATORY DATA: Reviewed. White cell count 17.8, hemoglobin 11.5 and platelets are 243. A coronavirus PCR was negative. BUN and creatinine normal. IMPRESSION: 1. Abnormal CT abdomen and pelvis with lower sections of the lungs showing mostly atelectasis posteromedially in RLL. This is to be expected after her appendectomy. 2. Long history of tobacco use, suspect underlying chronic obstructive pulmonary disease. 3. Underlying obesity. 4. Abnormal CT abdomen and pelvis as discussed above. 5. Status post laparoscopic appendectomy. RECOMMENDATIONS: 1. Discussed with the patient that at this point she needs to do aggressive pulmonary toilet. 2. We will add bronchodilators. 3. Followup imaging study as needed. 4. Follow General Surgery recommendations. 5. Continue antibiotics. 6. DVT prophylaxis with subcutaneous heparin. 7. Discussed with RN and we will follow along with you. PHI STODDARD MD DR: HUBER/cristal JOB#: [id number] / [id number] EILEEN
[2019-10-30] MEDS: IPRATRPIUM/ALBUTEROL 0.5/2.5MG 3 ML NEBU. NEB SCH ×3 (10:57→19:00)
[2019-10-30 11:00] VITALS: BP 143/85
--- NOTE | 2019-10-30 11:40 | PDOC ---
Infectious Disease Note Vital Sign Vital Signs Vital Signs Date Time Temp Pulse Resp B/P (MAP) Pulse Ox O2 Delivery O2 Flow Rate FiO2 10/30/19 10:58 93 Nasal Cannula 2.0 10/30/19 07:00 98.0 111 18 128/85 (99) 98.0 Labs Micro FINDINGS: The liver and spleen and pancreas and gallbladder are normal. No extrahepatic biliary ductal dilatation is seen. No adrenal mass is evident. Both kidneys are normal. Urinary bladder is distended. Urinary bladder wall is smooth. No uterine mass is seen. No dominant ovarian cyst or mass is evident. There is mild colonic dilatation. The appendix is surgically absent. There is an elliptical fluid collection within the right lower quadrant of the abdomen lateral and posterior to the cecum. This measures 3.7 cm in greatest dimension. This may represent a small postoperative fluid collection or abscess. Just superior and medial to this fluid collection is an ovoid density measuring 67 Hounsfield units and may represent postoperative hematoma. This measures 2.4 cm in greatest dimension. There is another fluid collection seen more medially and located between loops of bowel measuring 4.5 cm in greatest dimension. There are free bubbles of air within the anterior abdominal wall musculature consistent with the recent surgery. Small pockets of free intraperitoneal air are seen secondary to recent surgery. No focal aneurysmal dilatation of the abdominal aorta is seen. No enlarged abdominal or pelvic lymphadenopathy is evident. No significant pleural effusion is seen. There is a consolidative infiltrate within the posterior medial aspect of the right lower lobe. Atelectasis of the left lung base is seen. No lytic process is seen. IMPRESSION: Recent appendectomy. There are 2 postoperative fluid collections or abscesses within the right lower quadrant of the abdomen. Small postoperative hematoma is seen within the right lower quadrant. Urinary bladder distention. Consolidative infiltrate within the medial aspect of the right lower lobe. IMPRESSION: Recent appendectomy. There are 2 postoperative fluid collections or abscesses within the right lower quadrant of the abdomen. Small postoperative hematoma is seen within the right lower quadrant. Urinary bladder distention. Consolidative infiltrate within the medial aspect of the right lower lobe. Objective Assessment Leukocytosis - ? post op/Steroids/constipation/Bladder distension - S/p appendectomy 10/25 Obesity Tobacco abuse Plan Plan of Care Now has had 3 BM and urine flowing well. Hopefully WBC improving CBC and BMP now Cont Zosyn Add Fluconazole for now F/U labs D/w nursing Thank you # [id number] LAMBERT VICENTE MD Oct 30, 2019 11:40
--- NOTE | 2019-10-30 11:56 | PDOC ---
PROGRESS NOTES Chief Complaint Chief Complaint Acute appendicitis status post appendectomy POD #1 Obesity with a BMI of 39 Tobacco abuse Leukocytosis secondary to acute appendicitis Plan: labs in am pain management Incentive spirometry further recommendations based on clinical course. DVT prophylaxis: scd and teds History of Present Illness History of Present Illness 10/29, small abcess on CT, not enough to place drain pain better, still weak on IV abx 10/28, KUB showed ileus discussed w patient , pain better, will stop [employer], ambulate as able still tachycardia, white count still high gen surg following, CT ordered, will follow try to DC soon 10/27 pain worse overnight, started on [employer] for pain, still having pain will check KUB, gen surg following stool softeners as able Vitals Vitals Vital Signs Date Time Temp Pulse Resp B/P (MAP) Pulse Ox O2 Delivery O2 Flow Rate FiO2 10/30/19 11:00 98.3 108 18 143/85 (104) 91 Room Air 98.3 10/30/19 10:58 2.0 Physical Exam General: Alert, Oriented X3, Cooperative Heart: Regular rate, Normal S1, Normal S2 Lungs: Clear Abdomen: Soft, Other (TTP lap sites ) Extremities: No clubbing, No cyanosis Skin: No rashes, No breakdown Comment Review of Relevant I have reviewed the following items rod (where applicable) has been applied. Labs Laboratory Tests Test 10/29/19 09:25 White Blood Count 17.8 x10^3/uL (4.0-11.0) Red Blood Count 3.51 x10^6/uL (3.50-5.40) Hemoglobin 11.5 g/dL (12.0-15.5) Hematocrit 34.3 % (36.0-47.0) Mean Corpuscular Volume 98 fL (79-100) Mean Corpuscular Hemoglobin 33 pg (25-35) Mean Corpuscular Hemoglobin Concent 34 g/dL (31-37) Red Cell Distribution Width 12.7 % (11.5-14.5) Platelet Count 243 x10^3/uL (140-400) Neutrophils (%) (Auto) 78 % (31-73) Lymphocytes (%) (Auto) 13 % (24-48) Monocytes (%) (Auto) 4 % (0-9) Eosinophils (%) (Auto) 5 % (0-3) Basophils (%) (Auto) 0 % (0-3) Neutrophils # (Auto) 13.9 x10^3/uL (1.8-7.7) Lymphocytes # (Auto) 2.3 x10^3/uL (1.0-4.8) Monocytes # (Auto) 0.8 x10^3/uL (0.0-1.1) Eosinophils # (Auto) 0.8 x10^3/uL (0.0-0.7) Basophils # (Auto) 0.1 x10^3/uL (0.0-0.2) Medications Current Medications Propofol (Diprivan) 200 mg STK-MED ONCE IV ; Start 10/26/19 at 17:14; Stop 10/26/19 at 17:15; Status DC Lidocaine HCl (Lidocaine Pf 2% Vial) 5 ml STK-MED ONCE .ROUTE ; Start 10/26/19 at 17:14; Stop 10/26/19 at 17:15; Status DC Fentanyl Citrate (Fentanyl 2ml Vial) 100 mcg STK-MED ONCE .ROUTE ; Start 10/26/19 at 17:14; Stop 10/26/19 at 17:15; Status DC Rocuronium Bruneau (Zemuron) 50 mg STK-MED ONCE .ROUTE ; Start 10/26/19 at 17:14; Stop 10/26/19 at 17:15; Status DC Ondansetron HCl (Zofran) 4 mg PRN Q6HRS PRN IV NAUSEA/VOMITING; Start 10/26/19 at 17:30; Stop 10/27/19 at 17:29; Status DC Fentanyl Citrate (Fentanyl 2ml Vial) 25 mcg PRN Q5MIN PRN IV MILD PAIN 1-3; Start 10/26/19 at 17:30; Stop 10/27/19 at 17:29; Status DC Fentanyl Citrate (Fentanyl 2ml Vial) 50 mcg PRN Q5MIN PRN IV MODERATE TO SEVERE PAIN Last administered on 10/26/19at 19:35; Start 10/26/19 at 17:30; Stop 10/27/19 at 17:29; Status DC Morphine Sulfate (Morphine Sulfate) 1 mg PRN Q10MIN PRN IV SEVERE PAIN 7-10; Start 10/26/19 at 17:30; Stop 10/27/19 at 17:29; Status DC Ringer's Solution 1,000 ml @ 30 mls/hr Q24H IV Last administered on 10/26/19at 17:46; Start 10/26/19 at 17:24; Stop 10/27/19 at 05:23; Status DC Lidocaine HCl (Xylocaine-Mpf 1% 2ml Vial) 2 ml PRN 1X PRN ID PRIOR TO IV START; Start 10/26/19 at 17:30; Stop 10/27/19 at 17:29; Status DC Hydromorphone HCl (Dilaudid) 0.5 mg PRN Q10MIN PRN IV SEV PAIN, Second choice; Start 10/26/19 at 17:30; Stop 10/27/19 at 17:29; Status DC Prochlorperazine Edisylate (Compazine) 5 mg PACU PRN PRN IV NAUSEA, MRX1 Last administered on 10/26/19at 19:26; Start 10/26/19 at 17:30; Stop 10/27/19 at 17:29; Status DC Cefoxitin Sodium (Mefoxin) 2 gm 1X PREOP ONCE IVP Last administered on 10/26/19at 18:39; Start 10/26/19 at 17:45; Stop 10/26/19 at 17:46; Status DC Bupivacaine HCl/ Epinephrine Bitart (Sensorcain-Epi 0.5%-1:[id number] Mpf) 30 ml STK-MED ONCE .ROUTE Last administered on 10/26/19at 18:12; Start 10/26/19 at 17:36; Stop 10/26/19 at 17:36; Status DC Fentanyl Citrate (Fentanyl 2ml Vial) 50 mcg 1X ONCE IVP Last administered on 10/26/19at 17:48; Start 10/26/19 at 17:45; Stop 10/26/19 at 17:46; Status DC Cefoxitin Sodium (Mefoxin) 1 gm STK-MED ONCE IVP ; Start 10/26/19 at 18:02; Stop 10/26/19 at 18:02; Status DC Dexamethasone Sodium Phosphate (Decadron) 4 mg STK-MED ONCE .ROUTE ; Start 10/26/19 at 18:38; Stop 10/26/19 at 18:39; Status DC Desflurane (Suprane) 30 ml STK-MED ONCE IH ; Start 10/26/19 at 18:38; Stop 10/26/19 at 18:39; Status DC Ondansetron HCl (Zofran) 4 mg STK-MED ONCE .ROUTE ; Start 10/26/19 at 18:38; Stop 10/26/19 at 18:39; Status DC Cefoxitin Sodium (Mefoxin) 1 gm STK-MED ONCE IVP ; Start 10/26/19 at 18:50; Stop 10/26/19 at 18:50; Status DC Neostigmine Methylsulfate (Bloxiverz) 10 mg STK-MED ONCE .ROUTE ; Start 10/26/19 at 18:58; Stop 10/26/19 at 18:58; Status DC Glycopyrrolate (Robinul) 1 mg STK-MED ONCE .ROUTE ; Start 10/26/19 at 18:58; Stop 10/26/19 at 18:59; Status DC Heparin Sodium (Porcine) (Heparin Sodium) 5,000 unit Q12HR SQ Last administered on 10/30/19at 08:40; Start 10/27/19 at 09:00 Sodium Chloride (Normal Saline Flush) 3 ml QSHIFT PRN IV AFTER MEDS AND BLOOD DRAWS; Start 10/26/19 at 19:15 Ringer's Solution 1,000 ml @ 100 mls/hr Q10H IV Last administered on 10/27/19at 17:45; Start 10/26/19 at 19:12; Stop 10/28/19 at 05:38; Status DC Acetaminophen/ Hydrocodone Bitart (Lortab 5/325) 1 tab PRN Q4HRS PRN PO MILD PAIN 1-3 Last administered on 10/30/19at 08:36; Start 10/26/19 at 19:15 Ketorolac Tromethamine (Toradol 30mg Vial) 30 mg PRN Q6HRS PRN IV MILD PAIN 1-3 Last administered on 10/30/19at 10:24; Start 10/26/19 at 19:15; Stop 10/31/19 at 19:14 Naloxone HCl (Narcan) 0.4 mg PRN Q2MIN PRN IV SEE INSTRUCTIONS; Start 10/26/19 at 19:15 Sodium Chloride 1,000 ml @ 25 mls/hr Q24H IV Last administered on 10/29/19at 23:11; Start 10/26/19 at 19:12 Morphine Sulfate (Morphine Sulfate) 1 mg PRN Q1HR PRN IV MODERATE-SEVERE PAIN Last administered on 10/27/19at 21:42; Start 10/26/19 at 19:15; Stop 10/29/19 at 06:06; Status DC Ondansetron HCl (Zofran) 4 mg PRN Q6HRS PRN IVP NAUESA, 1ST CHOICE Last administered on 10/29/19at 23:24; Start 10/26/19 at 19:15 Piperacillin Sod/ Tazobactam Sod 3.375 gm/Sodium Chloride 50 ml @ 100 mls/hr Q6HRS IV Last administered on 10/30/19at 06:23; Start 10/27/19 at 00:00 Fentanyl Citrate (Fentanyl 2ml Vial) 100 mcg STK-MED ONCE .ROUTE ; Start 10/26/19 at 19:24; Stop 10/26/19 at 19:24; Status DC Prochlorperazine Edisylate (Compazine) 10 mg STK-MED ONCE .ROUTE ; Start 10/26/19 at 19:24; Stop 10/26/19 at 19:24; Status DC Lactobacillus Rhamnosus (Culturelle) 1 cap BID PO Last administered on 10/30/19at 08:34; Start 10/27/19 at 21:00 Hydromorphone HCl 30 ml @ 0 mls/hr CONT PRN PRN IV PER PROTOCOL Last administered on 10/29/19at 06:27; Start 10/28/19 at 00:15; Stop 10/29/19 at 09:06; Status DC Al Hydroxide/Mg Hydroxide (Mylanta Plus Xs) 30 ml PRN Q2HR PRN PO HEARTBURN / GAS Last administered on 10/28/19at 06:12; Start 10/28/19 at 05:45 Acetaminophen (Tylenol) 650 mg PRN Q6HRS PRN PO FEVER; Start 10/28/19 at 10:30; Stop 10/28/19 at 12:09; Status DC Potassium Chloride (Klor-Con) 40 meq 1X ONCE PO Last administered on 10/28/19at 12:00; Start 10/28/19 at 11:00; Stop 10/28/19 at 11:01; Status DC Prochlorperazine Edisylate (Compazine) 10 mg PRN Q6HRS PRN IV NAUSEA/VOMITING, 2nd CHOICE Last administered on 10/29/19at 11:43; Start 10/28/19 at 12:00 Acetaminophen/ Aspirin/Caffeine (Excedrin Migraine) 1 tab PRN Q6HRS PRN PO MIGR JANIYA HEADACHE Last administered on 10/30/19at 06:28; Start 10/28/19 at 12:15 Magnesium Hydroxide (Milk Of Magnesia) 2,400 mg PRN DAILY PRN PO CONSTIPATION Last administered on 10/29/19at 08:20; Start 10/29/19 at 08:00 Lubiprostone (Amitiza) 24 mcg BIDWMEALS PO Last administered on 10/29/19at 17:27; Start 10/28/19 at 17:00 Iohexol (Omnipaque 240 Mg/ml) 30 ml 1X ONCE PO Last administered on 10/29/19at 11:15; Start 10/29/19 at 11:15; Stop 10/29/19 at 11:16; Status DC Iohexol (Omnipaque 300 Mg/ml) 754 ml 1X ONCE IV Last administered on 10/29/19at 11:15; Start 10/29/19 at 11:15; Stop 10/29/19 at 11:16; Status DC Fentanyl Citrate (Fentanyl 2ml Vial) 75 mcg PRN Q2HR PRN IVP PAIN Last administered on 10/30/19at 04:53; Start 10/29/19 at 17:00 Albuterol/ Ipratropium (Duoneb) 3 ml RTQID NEB Last administered on 10/30/19at 10:57; Start 10/30/19 at 12:00 Fluconazole/ Sodium Chloride 200 ml @ 100 mls/hr Q24H IV ; Start 10/30/19 at 13:00 Active Scripts Active Colace (Docusate Sodium) 100 Mg Capsule 100 Mg PO BID Milk Of Magnesia (Magnesium Hydroxide) 400 Mg/5 Ml Oral.susp 2,400 Mg PO PRN DAILY PRN Ultram (Tramadol Hcl) 50 Mg Tablet 1 Tab PO TID PRN PRN MDD 2 Tablet(s) 5 Days Vitals/I & O Vital Sign - Last 24 Hours 10/29/19 10/29/19 10/29/19 10/29/19 14:41 15:34 16:34 17:27 Temp 97.8 97.8 Pulse 108 Resp 16 B/P (MAP) 122/68 (86) Pulse Ox 90 O2 Delivery Room Air Room Air Room Air Room Air O2 Flow Rate 2.0 10/29/19 10/29/19 10/29/19 10/29/19 17:57 19:45 19:57 20:00 Temp 98.4 98.4 Pulse 118 Resp 16 B/P (MAP) 150/80 (103) Pulse Ox 90 O2 Delivery Room Air Room Air Room Air Room Air 10/29/19 10/29/19 10/29/19 10/29/19 20:44 23:12 23:28 23:42 Temp 98.5 98.5 Pulse 110 Resp 16 B/P (MAP) 144/81 (102) Pulse Ox 91 O2 Delivery Room Air Room Air Room Air Room Air 10/30/19 10/30/19 10/30/19 10/30/19 01:21 01:25 01:55 02:21 O2 Delivery Room Air Room Air Room Air Room Air 10/30/19 10/30/19 10/30/19 10/30/19 03:57 04:53 05:23 07:00 Temp 97.7 98.0 97.7 98.0 Pulse 99 111 Resp 18 18 B/P (MAP) 132/82 (99) 128/85 (99) Pulse Ox 97 90 O2 Delivery Room Air Room Air Room Air Room Air 10/30/19 10/30/19 10/30/19 10/30/19 07:35 08:36 10:58 11:00 Temp 98.3 98.3 Pulse 108 Resp 18 B/P (MAP) 143/85 (104) Pulse Ox 93 91 O2 Delivery Room Air Room Air Nasal Cannula Room Air O2 Flow Rate 2.0 Intake and Output 10/29/19 10/29/19 10/30/19 15:00 23:00 07:00 Output Total 650 ml Balance -650 ml Justicifation of Admission Dx: Justifications for Admission: Justification of Admission Dx: Yes GENNY FU MD Oct 30, 2019 11:56
[2019-10-30 12:34] LABS: BASO # 0.1 x10^3/uL (0.0-0.2); BASO % 1 % (0-3); EOS # 0.9 x10^3/uL (0.0-0.7); EOS % 7 % (0-3); HEMATOCRIT 31.8 % (36.0-47.0); HEMOGLOBIN 10.7 g/dL (12.0-15.5); LYMPH # 2.2 x10^3/uL (1.0-4.8); LYMPH % 17 % (24-48); MEAN CORPUSCULAR HEMOGLOBIN 33 pg (25-35); MEAN CORPUSCULAR HGB CONC 34 g/dL (31-37); MEAN CORPUSCULAR VOLUME 97 fL (79-100); MONO # 0.7 x10^3/uL (0.0-1.1); MONO % 5 % (0-9); NEUT # 9.3 x10^3/uL (1.8-7.7); NEUT % 71 % (31-73); PLATELET COUNT 253 x10^3/uL (140-400); RED BLOOD COUNT 3.29 x10^6/uL (3.50-5.40); RED CELL DISTRIBUTION WIDTH 12.6 % (11.5-14.5); WHITE BLOOD COUNT 13.1 x10^3/uL (4.0-11.0)
[2019-10-30 12:46] LABS: CALCIUM 7.9 mg/dL (8.5-10.1); CREATININE 0.7 mg/dL (0.6-1.0); GFR 91.3
[2019-10-30 12:53] LABS: POTASSIUM 2.8 mmol/L (3.5-5.1)
[2019-10-30] MEDS ORDERED: POTASSIUM CHLORIDE 20 MEQ TABLET.ER. PO ONE ×2 (13:00→17:00)
[2019-10-30] MEDS ORDERED: FLUCONAZOLE 400MG/200ML PREMIX 200 ML IV SCH (13:00)
--- NOTE | 2019-10-30 13:13 | CONS ---
DATE OF CONSULTATION: 10/30/2019 LOCATION: The patient is in room 422. REQUESTING PHYSICIAN: Dr. Casillas. REASON FOR CONSULTATION: Leukocytosis. HISTORY OF PRESENT ILLNESS: The patient is a 44-year-old female with complaints initially of abdominal pain and then presenting to [facility], was transferred to [facility]. She also had some increased urinary frequency, but a CAT scan from [facility] showed an inflamed appendix. She was diagnosed with an acute appendicitis and was taken to the operating room on 10/25 and underwent a laparoscopic appendectomy. The appendix was distended and friable, minimal manipulation resulted in some drainage. She was given dexamethasone on the day of surgery, a dose of cefoxitin, was then placed on Zosyn. Yesterday, her white blood cell count increased to 17.8 from 15.9 the day before. Hence, I was consulted today. Currently, the patient is lying in bed. She is feeling some better. She was constipated, but last evening, her bowels finally started to move. Also, she had some issues with some urinary retention, but this is also improved. Her appetite is improved. She denies having any fevers. She is having some sweats. No rashes. PAST MEDICAL HISTORY: Positive for morbid obesity, suspected underlying COPD, previous section, tonsillectomy. REVIEW OF SYSTEMS: Otherwise negative. ALLERGIES: No known drug allergies. SOCIAL HISTORY: She is a smoker. FAMILY HISTORY: Noncontributory. CURRENT MEDICATIONS: Include Zosyn, heparin, DuoNebs, lactobacillus, lubiprostone p.r.n. meds. PHYSICAL EXAMINATION: VITAL SIGNS: She is afebrile, temperature 98.3, pulse 108, respirations 18, blood pressure 143/85, satting 91%. CONSTITUTIONAL: She is sitting upright in bed. She is cooperative. She is in no acute distress. She is obese. HEENT: Pupils equal and reactive. Normal conjunctivae. Oral cavity, pharynx is clear. NECK: Supple. Good range of motion. LUNGS: Clear to auscultation bilaterally. HEART: S1, S2. ABDOMEN: Obese, soft, positive bowel sounds. Incision sites have clean dressings. She has some mild tenderness on the right side. EXTREMITIES: No clubbing, cyanosis, or gross edema. SKIN: Warm to touch without signs of rash. NEUROLOGIC: She is nonfocal. PSYCHIATRIC: Affect is appropriate. LABORATORY VALUES: From the , white count of 17.8, hemoglobin 11.5, platelets of 243, neutrophils are 78, lymphs are 13, creatinine was 0.7, glucose was 103. COVID tests were all negative. She had a CT scan of the abdomen and pelvis on the , showed 2 postoperative fluid collections or abscesses in the right lower quadrant of the abdomen, small postop hematoma, urinary bladder distention, and a consolidated infiltrate in the medial aspect of the right lobe, where the fluid collection was 3.7, another one was 4.5. IMPRESSION: 1. Leukocytosis, questionable postop, also has steroids plus constipation and bladder distention. 2. Status post appendectomy on 10/25. 3. Obesity. 4. Tobacco abuse. RECOMMENDATIONS: She has now had 3 bowel movements starting last night. Her urine is flowing well. Hopefully, white blood cell count is improving, but we will order a CBC and CMP now. Continue Zosyn. We will add fluconazole as well for now and we will follow up on labs as discussed with the nurse. Thank you for allowing me to participate in the patient's care. If you have any questions, please do not hesitate to contact me. LAMBERT VICENTE MD DR: YOHAN/cristal JOB#: [id number] / [id number] EILEEN
[2019-10-30 15:00] VITALS: BP 119/78
[2019-10-30 19:00] VITALS: BP 136/89
[2019-10-30] MEDS: IV NORMAL SALINE 1000ML BAG 1,000 ML IV SCH (19:12)
[2019-10-30 23:00] VITALS: BP 114/70
[2019-10-31 03:00] VITALS: BP 131/80
[2019-10-31] MEDS: HYDROcodone/APAP 5/325MG 1 TAB TABLET PO PRN ×2 (03:59→11:48)
[2019-10-31] MEDS: PIPERACILLIN/TAZOBACTAM 3.375 GM in IV NORMAL SALINE 50ML 50 ML IV SCH ×2 (05:44→12:00)
--- NOTE | 2019-10-31 06:18 | NUR ---
Demonstrates low tolerance for pain. Requesting Fentanyl "as often as I can have it." Lortab given at 0400. Patient states she is going home today. Refused to ambulate in the halls earlier. "Im walking to the bathroom now." Refused to demonstrate the IS earlier. "I been doing it all day." Urine fairly dark, encouraged po intake.
[2019-10-31 07:00] VITALS: BP 127/82
[2019-10-31 07:21] LABS: BASO # 0.1 x10^3/uL (0.0-0.2); BASO % 0 % (0-3); EOS % 8 % (0-3); HEMATOCRIT 31.3 % (36.0-47.0); HEMOGLOBIN 10.5 g/dL (12.0-15.5); LYMPH # 2.1 x10^3/uL (1.0-4.8); LYMPH % 17 % (24-48); MEAN CORPUSCULAR HEMOGLOBIN 33 pg (25-35); MEAN CORPUSCULAR HGB CONC 34 g/dL (31-37); MEAN CORPUSCULAR VOLUME 97 fL (79-100); MONO # 0.9 x10^3/uL (0.0-1.1); MONO % 7 % (0-9); NEUT # 8.6 x10^3/uL (1.8-7.7); NEUT % 69 % (31-73); PLATELET COUNT 286 x10^3/uL (140-400); RED BLOOD COUNT 3.21 x10^6/uL (3.50-5.40); WHITE BLOOD COUNT 12.6 x10^3/uL (4.0-11.0)
[2019-10-31] MEDS: IPRATRPIUM/ALBUTEROL 0.5/2.5MG 3 ML NEBU. NEB SCH ×2 (07:25→11:17)
[2019-10-31] MEDS: LUBIPROSTONE 24 MCG CAPSULE PO SCH (08:00)
--- NOTE | 2019-10-31 08:10 | PDOC ---
Infectious Disease Note Subjective Subjective Better and less pain Eating No F/C/s/N/v/D/SOA/rash ROS ROS o/w neg Vital Sign Vital Signs Vital Signs Date Time Temp Pulse Resp B/P (MAP) Pulse Ox O2 Delivery O2 Flow Rate FiO2 10/31/19 07:26 93 Room Air 10/31/19 05:00 20 10/31/19 03:00 98.5 103 131/80 (97) 98.5 10/30/19 10:58 2.0 Physical Exam PHYSICAL EXAM CONSTITUTIONAL: She is sitting upright in bed. She is cooperative. She is in no acute distress. She is obese. looks better. Eating HEENT: Pupils equal and reactive. Normal conjunctivae. Oral cavity, pharynx is clear. NECK: Supple. Good range of motion. LUNGS: Clear to auscultation bilaterally. HEART: S1, S2. ABDOMEN: Obese, soft, positive bowel sounds. Incision sites have clean dressings. She has some mild tenderness on the right side. EXTREMITIES: No clubbing, cyanosis, or gross edema. SKIN: Warm to touch without signs of rash. NEUROLOGIC: She is nonfocal. PSYCHIATRIC: Affect is appropriate. Labs Lab Laboratory Tests Test 10/30/19 12:20 10/31/19 05:50 White Blood Count 13.1 x10^3/uL (4.0-11.0) 12.6 x10^3/uL (4.0-11.0) Red Blood Count 3.29 x10^6/uL (3.50-5.40) 3.21 x10^6/uL (3.50-5.40) Hemoglobin 10.7 g/dL (12.0-15.5) 10.5 g/dL (12.0-15.5) Hematocrit 31.8 % (36.0-47.0) 31.3 % (36.0-47.0) Mean Corpuscular Volume 97 fL (79-100) 97 fL (79-100) Mean Corpuscular Hemoglobin 33 pg (25-35) 33 pg (25-35) Mean Corpuscular Hemoglobin Concent 34 g/dL (31-37) 34 g/dL (31-37) Red Cell Distribution Width 12.6 % (11.5-14.5) 13.0 % (11.5-14.5) Platelet Count 253 x10^3/uL (140-400) 286 x10^3/uL (140-400) Neutrophils (%) (Auto) 71 % (31-73) 69 % (31-73) Lymphocytes (%) (Auto) 17 % (24-48) 17 % (24-48) Monocytes (%) (Auto) 5 % (0-9) 7 % (0-9) Eosinophils (%) (Auto) 7 % (0-3) 8 % (0-3) Basophils (%) (Auto) 1 % (0-3) 0 % (0-3) Neutrophils # (Auto) 9.3 x10^3/uL (1.8-7.7) 8.6 x10^3/uL (1.8-7.7) Lymphocytes # (Auto) 2.2 x10^3/uL (1.0-4.8) 2.1 x10^3/uL (1.0-4.8) Monocytes # (Auto) 0.7 x10^3/uL (0.0-1.1) 0.9 x10^3/uL (0.0-1.1) Eosinophils # (Auto) 0.9 x10^3/uL (0.0-0.7) 1.0 x10^3/uL (0.0-0.7) Basophils # (Auto) 0.1 x10^3/uL (0.0-0.2) 0.1 x10^3/uL (0.0-0.2) Sodium Level 139 mmol/L (136-145) Potassium Level 2.8 mmol/L (3.5-5.1) Chloride Level 104 mmol/L (98-107) Carbon Dioxide Level 27 mmol/L (21-32) Anion Gap 8 (6-14) Blood Urea Nitrogen 6 mg/dL (7-20) Creatinine 0.7 mg/dL (0.6-1.0) Estimated GFR (Cockcroft-Gault) 91.3 Glucose Level 112 mg/dL (70-99) Calcium Level 7.9 mg/dL (8.5-10.1) Micro FINDINGS: The liver and spleen and pancreas and gallbladder are normal. No extrahepatic biliary ductal dilatation is seen. No adrenal mass is evident. Both kidneys are normal. Urinary bladder is distended. Urinary bladder wall is smooth. No uterine mass is seen. No dominant ovarian cyst or mass is evident. There is mild colonic dilatation. The appendix is surgically absent. There is an elliptical fluid collection within the right lower quadrant of the abdomen lateral and posterior to the cecum. This measures 3.7 cm in greatest dimension. This may represent a small postoperative fluid collection or abscess. Just superior and medial to this fluid collection is an ovoid density measuring 67 Hounsfield units and may represent postoperative hematoma. This measures 2.4 cm in greatest dimension. There is another fluid collection seen more medially and located between loops of bowel measuring 4.5 cm in greatest dimension. There are free bubbles of air within the anterior abdominal wall musculature consistent with the recent surgery. Small pockets of free intraperitoneal air are seen secondary to recent surgery. No focal aneurysmal dilatation of the abdominal aorta is seen. No enlarged abdominal or pelvic lymphadenopathy is evident. No significant pleural effusion is seen. There is a consolidative infiltrate within the posterior medial aspect of the right lower lobe. Atelectasis of the left lung base is seen. No lytic process is seen. IMPRESSION: Recent appendectomy. There are 2 postoperative fluid collections or abscesses within the right lower quadrant of the abdomen. Small postoperative hematoma is seen within the right lower quadrant. Urinary bladder distention. Consolidative infiltrate within the medial aspect of the right lower lobe. IMPRESSION: Recent appendectomy. There are 2 postoperative fluid collections or abscesses within the right lower quadrant of the abdomen. Small postoperative hematoma is seen within the right lower quadrant. Urinary bladder distention. Consolidative infiltrate within the medial aspect of the right lower lobe. Objective Assessment Leukocytosis - ? post op/Steroids/constipation/Bladder distension - improving prior to Diflucan S/p appendectomy 10/25 Obesity Tobacco abuse Plan Plan of Care Cont Zosyn but can change to Augmentin 875 mg po BID for 5 days if ok with surgery d/c Fluconazole as WBC improved prior to addition LAMBERT VICENTE MD Oct 31, 2019 08:10
[2019-10-31] MEDS: KETOROLAC 30 MG/ML VIAL. IV PRN (08:11)
[2019-10-31] MEDS: LACTOBACILLUS RHAMNOSUS GG 1 CAPSULE. PO SCH (08:11)
[2019-10-31] MEDS: HEPARIN for SUB-Q USE 5,000 UNIT/ML VIAL. SQ SCH (08:16)
[2019-10-31] MEDS ORDERED: AMOX1TAB61 PO (10:38)
--- NOTE | 2019-10-31 10:41 | PDOC3 ---
Discharge Summary Visit Information Date of Admission: Oct 26, 2019 Date of Discharge: Oct 31, 2019 Final Diagnosis Acute appendicitis s/p surg appendectomy Obesity with a BMI of 39 Tobacco abuse Leukocytosis and sepsis small abcess x2 after surgery Brief Hospital Course Allergies Allergies Coded Allergies Type Severity Reaction Last Updated Verified No Known Drug Allergies 10/26/19 No Vital Signs Vital Signs Date Time Temp Pulse Resp B/P (MAP) Pulse Ox O2 Delivery O2 Flow Rate FiO2 10/31/19 07:26 93 Room Air 10/31/19 07:00 98.7 79 18 127/82 (97) 98.7 10/30/19 10:58 2.0 Lab Results Laboratory Tests Test 10/30/19 12:20 10/31/19 05:50 White Blood Count 13.1 x10^3/uL (4.0-11.0) 12.6 x10^3/uL (4.0-11.0) Red Blood Count 3.29 x10^6/uL (3.50-5.40) 3.21 x10^6/uL (3.50-5.40) Hemoglobin 10.7 g/dL (12.0-15.5) 10.5 g/dL (12.0-15.5) Hematocrit 31.8 % (36.0-47.0) 31.3 % (36.0-47.0) Mean Corpuscular Volume 97 fL (79-100) 97 fL (79-100) Mean Corpuscular Hemoglobin 33 pg (25-35) 33 pg (25-35) Mean Corpuscular Hemoglobin Concent 34 g/dL (31-37) 34 g/dL (31-37) Red Cell Distribution Width 12.6 % (11.5-14.5) 13.0 % (11.5-14.5) Platelet Count 253 x10^3/uL (140-400) 286 x10^3/uL (140-400) Neutrophils (%) (Auto) 71 % (31-73) 69 % (31-73) Lymphocytes (%) (Auto) 17 % (24-48) 17 % (24-48) Monocytes (%) (Auto) 5 % (0-9) 7 % (0-9) Eosinophils (%) (Auto) 7 % (0-3) 8 % (0-3) Basophils (%) (Auto) 1 % (0-3) 0 % (0-3) Neutrophils # (Auto) 9.3 x10^3/uL (1.8-7.7) 8.6 x10^3/uL (1.8-7.7) Lymphocytes # (Auto) 2.2 x10^3/uL (1.0-4.8) 2.1 x10^3/uL (1.0-4.8) Monocytes # (Auto) 0.7 x10^3/uL (0.0-1.1) 0.9 x10^3/uL (0.0-1.1) Eosinophils # (Auto) 0.9 x10^3/uL (0.0-0.7) 1.0 x10^3/uL (0.0-0.7) Basophils # (Auto) 0.1 x10^3/uL (0.0-0.2) 0.1 x10^3/uL (0.0-0.2) Sodium Level 139 mmol/L (136-145) Potassium Level 2.8 mmol/L (3.5-5.1) Chloride Level 104 mmol/L (98-107) Carbon Dioxide Level 27 mmol/L (21-32) Anion Gap 8 (6-14) Blood Urea Nitrogen 6 mg/dL (7-20) Creatinine 0.7 mg/dL (0.6-1.0) Estimated GFR (Cockcroft-Gault) 91.3 Glucose Level 112 mg/dL (70-99) Calcium Level 7.9 mg/dL (8.5-10.1) Laboratory Tests Test 10/30/19 12:20 10/31/19 05:50 White Blood Count 13.1 x10^3/uL (4.0-11.0) 12.6 x10^3/uL (4.0-11.0) Red Blood Count 3.29 x10^6/uL (3.50-5.40) 3.21 x10^6/uL (3.50-5.40) Hemoglobin 10.7 g/dL (12.0-15.5) 10.5 g/dL (12.0-15.5) Hematocrit 31.8 % (36.0-47.0) 31.3 % (36.0-47.0) Mean Corpuscular Volume 97 fL (79-100) 97 fL (79-100) Mean Corpuscular Hemoglobin 33 pg (25-35) 33 pg (25-35) Mean Corpuscular Hemoglobin Concent 34 g/dL (31-37) 34 g/dL (31-37) Red Cell Distribution Width 12.6 % (11.5-14.5) 13.0 % (11.5-14.5) Platelet Count 253 x10^3/uL (140-400) 286 x10^3/uL (140-400) Neutrophils (%) (Auto) 71 % (31-73) 69 % (31-73) Lymphocytes (%) (Auto) 17 % (24-48) 17 % (24-48) Monocytes (%) (Auto) 5 % (0-9) 7 % (0-9) Eosinophils (%) (Auto) 7 % (0-3) 8 % (0-3) Basophils (%) (Auto) 1 % (0-3) 0 % (0-3) Neutrophils # (Auto) 9.3 x10^3/uL (1.8-7.7) 8.6 x10^3/uL (1.8-7.7) Lymphocytes # (Auto) 2.2 x10^3/uL (1.0-4.8) 2.1 x10^3/uL (1.0-4.8) Monocytes # (Auto) 0.7 x10^3/uL (0.0-1.1) 0.9 x10^3/uL (0.0-1.1) Eosinophils # (Auto) 0.9 x10^3/uL (0.0-0.7) 1.0 x10^3/uL (0.0-0.7) Basophils # (Auto) 0.1 x10^3/uL (0.0-0.2) 0.1 x10^3/uL (0.0-0.2) Sodium Level 139 mmol/L (136-145) Potassium Level 2.8 mmol/L (3.5-5.1) Chloride Level 104 mmol/L (98-107) Carbon Dioxide Level 27 mmol/L (21-32) Anion Gap 8 (6-14) Blood Urea Nitrogen 6 mg/dL (7-20) Creatinine 0.7 mg/dL (0.6-1.0) Estimated GFR (Cockcroft-Gault) 91.3 Glucose Level 112 mg/dL (70-99) Calcium Level 7.9 mg/dL (8.5-10.1) Brief Hospital Course Ms. Orozco is a 44 old female admit with acute RLQ pain, taken to OR, appy, did well, then seveer pain, could not DC, KUB showed ileus, was on SLIVER CHOPPER for pain, then CT scan showed small abcess x2, IR consult, too small for drain, ID consult, abx given, zosyn for days Discharge Information Condition at Discharge: Improved Follow Up: Weeks Disposition/Orders: D/C to Home Scheduled Amoxicillin/Potassium Clav (Augmentin 875-125 Tablet) 1 Each Tablet, 1 TAB PO BID for infection for 5 Days, #10 Ref 0 Prescribed by: GENNY FU on 10/31/19 1038 Docusate Sodium (Colace) 100 Mg Capsule, 100 MG PO BID for constipation, #60 Prescribed by: GENNY FU on 10/29/19 0947 Scheduled PRN Magnesium Hydroxide (Milk Of Magnesia) 400 Mg/5 Ml Oral.susp, 2,400 MG PO PRN DAILY PRN for CONSTIPATION, #10 Prescribed by: GENNY FU on 10/29/19 0947 Tramadol Hcl (Ultram) 50 Mg Tablet, 1 TAB PO TID PRN PRN for pain MDD 2 Tablet(s) for 5 Days, #15 Ref 0 Prescribed by: GENNY FU on 10/29/19 0945 Justicifation of Admission Dx: Justifications for Admission: Justification of Admission Dx: Yes GENNY FU MD Oct 31, 2019 10:41
[2019-10-31 11:00] VITALS: BP 132/86
--- NOTE | 2019-10-31 11:10 | PDOC ---
SURGICAL PROGRESS NOTE Subjective Pt feels better, luis eduardo diet, passing stools. Some issues with pain with transition to PO. Requests d/c. Vital Signs Vital Signs Date Time Temp Pulse Resp B/P (MAP) Pulse Ox O2 Delivery O2 Flow Rate FiO2 10/31/19 07:26 93 Room Air 10/31/19 07:00 98.7 79 18 127/82 (97) 98.7 10/30/19 10:58 2.0 I&O Intake and Output 10/31/19 07:00 Intake Total 300 ml Balance 300 ml Intake Oral 300 ml # Voids 3 General: Alert, Oriented X3, Cooperative, No acute distress Abdomen: Soft, No tenderness, Other (incision c/d/i) Labs Laboratory Tests Test 10/30/19 12:20 10/31/19 05:50 White Blood Count 13.1 x10^3/uL (4.0-11.0) 12.6 x10^3/uL (4.0-11.0) Red Blood Count 3.29 x10^6/uL (3.50-5.40) 3.21 x10^6/uL (3.50-5.40) Hemoglobin 10.7 g/dL (12.0-15.5) 10.5 g/dL (12.0-15.5) Hematocrit 31.8 % (36.0-47.0) 31.3 % (36.0-47.0) Mean Corpuscular Volume 97 fL (79-100) 97 fL (79-100) Mean Corpuscular Hemoglobin 33 pg (25-35) 33 pg (25-35) Mean Corpuscular Hemoglobin Concent 34 g/dL (31-37) 34 g/dL (31-37) Red Cell Distribution Width 12.6 % (11.5-14.5) 13.0 % (11.5-14.5) Platelet Count 253 x10^3/uL (140-400) 286 x10^3/uL (140-400) Neutrophils (%) (Auto) 71 % (31-73) 69 % (31-73) Lymphocytes (%) (Auto) 17 % (24-48) 17 % (24-48) Monocytes (%) (Auto) 5 % (0-9) 7 % (0-9) Eosinophils (%) (Auto) 7 % (0-3) 8 % (0-3) Basophils (%) (Auto) 1 % (0-3) 0 % (0-3) Neutrophils # (Auto) 9.3 x10^3/uL (1.8-7.7) 8.6 x10^3/uL (1.8-7.7) Lymphocytes # (Auto) 2.2 x10^3/uL (1.0-4.8) 2.1 x10^3/uL (1.0-4.8) Monocytes # (Auto) 0.7 x10^3/uL (0.0-1.1) 0.9 x10^3/uL (0.0-1.1) Eosinophils # (Auto) 0.9 x10^3/uL (0.0-0.7) 1.0 x10^3/uL (0.0-0.7) Basophils # (Auto) 0.1 x10^3/uL (0.0-0.2) 0.1 x10^3/uL (0.0-0.2) Sodium Level 139 mmol/L (136-145) Potassium Level 2.8 mmol/L (3.5-5.1) Chloride Level 104 mmol/L (98-107) Carbon Dioxide Level 27 mmol/L (21-32) Anion Gap 8 (6-14) Blood Urea Nitrogen 6 mg/dL (7-20) Creatinine 0.7 mg/dL (0.6-1.0) Estimated GFR (Cockcroft-Gault) 91.3 Glucose Level 112 mg/dL (70-99) Calcium Level 7.9 mg/dL (8.5-10.1) Laboratory Tests Test 10/30/19 12:20 10/31/19 05:50 White Blood Count 13.1 x10^3/uL (4.0-11.0) 12.6 x10^3/uL (4.0-11.0) Red Blood Count 3.29 x10^6/uL (3.50-5.40) 3.21 x10^6/uL (3.50-5.40) Hemoglobin 10.7 g/dL (12.0-15.5) 10.5 g/dL (12.0-15.5) Hematocrit 31.8 % (36.0-47.0) 31.3 % (36.0-47.0) Mean Corpuscular Volume 97 fL (79-100) 97 fL (79-100) Mean Corpuscular Hemoglobin 33 pg (25-35) 33 pg (25-35) Mean Corpuscular Hemoglobin Concent 34 g/dL (31-37) 34 g/dL (31-37) Red Cell Distribution Width 12.6 % (11.5-14.5) 13.0 % (11.5-14.5) Platelet Count 253 x10^3/uL (140-400) 286 x10^3/uL (140-400) Neutrophils (%) (Auto) 71 % (31-73) 69 % (31-73) Lymphocytes (%) (Auto) 17 % (24-48) 17 % (24-48) Monocytes (%) (Auto) 5 % (0-9) 7 % (0-9) Eosinophils (%) (Auto) 7 % (0-3) 8 % (0-3) Basophils (%) (Auto) 1 % (0-3) 0 % (0-3) Neutrophils # (Auto) 9.3 x10^3/uL (1.8-7.7) 8.6 x10^3/uL (1.8-7.7) Lymphocytes # (Auto) 2.2 x10^3/uL (1.0-4.8) 2.1 x10^3/uL (1.0-4.8) Monocytes # (Auto) 0.7 x10^3/uL (0.0-1.1) 0.9 x10^3/uL (0.0-1.1) Eosinophils # (Auto) 0.9 x10^3/uL (0.0-0.7) 1.0 x10^3/uL (0.0-0.7) Basophils # (Auto) 0.1 x10^3/uL (0.0-0.2) 0.1 x10^3/uL (0.0-0.2) Sodium Level 139 mmol/L (136-145) Potassium Level 2.8 mmol/L (3.5-5.1) Chloride Level 104 mmol/L (98-107) Carbon Dioxide Level 27 mmol/L (21-32) Anion Gap 8 (6-14) Blood Urea Nitrogen 6 mg/dL (7-20) Creatinine 0.7 mg/dL (0.6-1.0) Estimated GFR (Cockcroft-Gault) 91.3 Glucose Level 112 mg/dL (70-99) Calcium Level 7.9 mg/dL (8.5-10.1) Problem List s/p appendectomy appears to be making progress OK to d/c home on PO abx. Requested pt f/u in two weeks. Justicifation of Admission Dx: Justifications for Admission: Justification of Admission Dx: Yes KOKO STARK MD Oct 31, 2019 11:10
--- NOTE | 2019-10-31 11:16 | PDOC ---
PULMONARY PROGRESS NOTES Subjective on ra, denies sob, has occ cough Vitals Vital Signs Date Time Temp Pulse Resp B/P (MAP) Pulse Ox O2 Delivery O2 Flow Rate FiO2 10/31/19 07:26 93 Room Air 10/31/19 07:00 98.7 79 18 127/82 (97) 98.7 10/30/19 10:58 2.0 ROS: No Nausea, No Chest Pain General: Alert HEENT: Other (nc at perrl ) Lungs: Clear Cardiovascular: S1, S2 Abdomen: Soft Neuro Exam: Alert Extremities: No Edema Skin: Warm Labs Laboratory Tests Test 10/30/19 12:20 10/31/19 05:50 White Blood Count 13.1 x10^3/uL (4.0-11.0) 12.6 x10^3/uL (4.0-11.0) Red Blood Count 3.29 x10^6/uL (3.50-5.40) 3.21 x10^6/uL (3.50-5.40) Hemoglobin 10.7 g/dL (12.0-15.5) 10.5 g/dL (12.0-15.5) Hematocrit 31.8 % (36.0-47.0) 31.3 % (36.0-47.0) Mean Corpuscular Volume 97 fL (79-100) 97 fL (79-100) Mean Corpuscular Hemoglobin 33 pg (25-35) 33 pg (25-35) Mean Corpuscular Hemoglobin Concent 34 g/dL (31-37) 34 g/dL (31-37) Red Cell Distribution Width 12.6 % (11.5-14.5) 13.0 % (11.5-14.5) Platelet Count 253 x10^3/uL (140-400) 286 x10^3/uL (140-400) Neutrophils (%) (Auto) 71 % (31-73) 69 % (31-73) Lymphocytes (%) (Auto) 17 % (24-48) 17 % (24-48) Monocytes (%) (Auto) 5 % (0-9) 7 % (0-9) Eosinophils (%) (Auto) 7 % (0-3) 8 % (0-3) Basophils (%) (Auto) 1 % (0-3) 0 % (0-3) Neutrophils # (Auto) 9.3 x10^3/uL (1.8-7.7) 8.6 x10^3/uL (1.8-7.7) Lymphocytes # (Auto) 2.2 x10^3/uL (1.0-4.8) 2.1 x10^3/uL (1.0-4.8) Monocytes # (Auto) 0.7 x10^3/uL (0.0-1.1) 0.9 x10^3/uL (0.0-1.1) Eosinophils # (Auto) 0.9 x10^3/uL (0.0-0.7) 1.0 x10^3/uL (0.0-0.7) Basophils # (Auto) 0.1 x10^3/uL (0.0-0.2) 0.1 x10^3/uL (0.0-0.2) Sodium Level 139 mmol/L (136-145) Potassium Level 2.8 mmol/L (3.5-5.1) Chloride Level 104 mmol/L (98-107) Carbon Dioxide Level 27 mmol/L (21-32) Anion Gap 8 (6-14) Blood Urea Nitrogen 6 mg/dL (7-20) Creatinine 0.7 mg/dL (0.6-1.0) Estimated GFR (Cockcroft-Gault) 91.3 Glucose Level 112 mg/dL (70-99) Calcium Level 7.9 mg/dL (8.5-10.1) Laboratory Tests Test 10/30/19 12:20 10/31/19 05:50 White Blood Count 13.1 x10^3/uL (4.0-11.0) 12.6 x10^3/uL (4.0-11.0) Red Blood Count 3.29 x10^6/uL (3.50-5.40) 3.21 x10^6/uL (3.50-5.40) Hemoglobin 10.7 g/dL (12.0-15.5) 10.5 g/dL (12.0-15.5) Hematocrit 31.8 % (36.0-47.0) 31.3 % (36.0-47.0) Mean Corpuscular Volume 97 fL (79-100) 97 fL (79-100) Mean Corpuscular Hemoglobin 33 pg (25-35) 33 pg (25-35) Mean Corpuscular Hemoglobin Concent 34 g/dL (31-37) 34 g/dL (31-37) Red Cell Distribution Width 12.6 % (11.5-14.5) 13.0 % (11.5-14.5) Platelet Count 253 x10^3/uL (140-400) 286 x10^3/uL (140-400) Neutrophils (%) (Auto) 71 % (31-73) 69 % (31-73) Lymphocytes (%) (Auto) 17 % (24-48) 17 % (24-48) Monocytes (%) (Auto) 5 % (0-9) 7 % (0-9) Eosinophils (%) (Auto) 7 % (0-3) 8 % (0-3) Basophils (%) (Auto) 1 % (0-3) 0 % (0-3) Neutrophils # (Auto) 9.3 x10^3/uL (1.8-7.7) 8.6 x10^3/uL (1.8-7.7) Lymphocytes # (Auto) 2.2 x10^3/uL (1.0-4.8) 2.1 x10^3/uL (1.0-4.8) Monocytes # (Auto) 0.7 x10^3/uL (0.0-1.1) 0.9 x10^3/uL (0.0-1.1) Eosinophils # (Auto) 0.9 x10^3/uL (0.0-0.7) 1.0 x10^3/uL (0.0-0.7) Basophils # (Auto) 0.1 x10^3/uL (0.0-0.2) 0.1 x10^3/uL (0.0-0.2) Sodium Level 139 mmol/L (136-145) Potassium Level 2.8 mmol/L (3.5-5.1) Chloride Level 104 mmol/L (98-107) Carbon Dioxide Level 27 mmol/L (21-32) Anion Gap 8 (6-14) Blood Urea Nitrogen 6 mg/dL (7-20) Creatinine 0.7 mg/dL (0.6-1.0) Estimated GFR (Cockcroft-Gault) 91.3 Glucose Level 112 mg/dL (70-99) Calcium Level 7.9 mg/dL (8.5-10.1) Medications Active Scripts Medications Dose Route/Sig Max Daily Dose Days Date Category Augmentin 875-125 Tablet (Amoxicillin/Potassium Clav) 1 Each Tablet 1 Tab PO BID 5 10/31/19 Rx Colace (Docusate Sodium) 100 Mg Capsule 100 Mg PO BID 10/29/19 Rx Milk Of Magnesia (Magnesium Hydroxide) 400 Mg/5 Ml Oral.susp 2,400 Mg PO PRN DAILY PRN 10/29/19 Rx Ultram (Tramadol Hcl) 50 Mg Tablet 1 Tab PO TID PRN PRN MDD 2 Tablet(s) 5 10/29/19 Rx Impression . IMPRESSION: 1. Abnormal CT abdomen and pelvis with lower sections of the lungs showing mostly atelectasis posteromedially in RLL. This is to be expected after her appendectomy. 2. Long history of tobacco use, suspect underlying chronic obstructive pulmonary disease. 3. Underlying obesity. 4. Abnormal CT abdomen and pelvis as discussed above. 5. Status post laparoscopic appendectomy. Plan . RECOMMENDATIONS: 1. on ra, cont IS the importance of use discussed 2. bronchodilators. 3. psg as out pt 4. Follow General Surgery recommendations. 5. Continue antibiotics. 6. DVT prophylaxis with subcutaneous heparin. 7. quit smoking for ever lose wt Discussed with RN and we will follow along with you. STEPHEN SUTTON MD Oct 31, 2019 11:16
--- NOTE | 2019-10-31 11:52 | NUR ---
d/c papers prevented to pt. Pt. states she does not like the pain meds she is perscribed to go home with, yet states she has never take it before. P pt. is refusing to leave at this time and states she wants to talk to Dr. Peterson about her pain meds. Text page sent to Dr. Peterson.
--- NOTE | 2019-10-31 11:55 | NUR ---
Dr. Peterson returned call, stated he would come see pt.
--- NOTE | 2019-10-31 13:33 | NUR ---
Pt. discharged to home with Rx, verbalized understanding of discharge instructions.
== END 2019-10-31 13:30 | disposition home or self-care (01) | DRG 854 ==
LOC: 4 NORTH 17:10
PROVIDERS: ADMIT Internal Medicine; ATTEND Internal Medicine
PROC: 0DTJ4ZZ Resection of Appendix, Percutaneous Endoscopic Approach (ICD-10-PCS; principal; 2019-10-26 18:00)
DX: A41.9 Sepsis, unspecified organism (principal); K35.80 Unspecified acute appendicitis; K56.7 Ileus, unspecified; Z68.39 Body mass index [BMI] 39.0-39.9, adult; E66.01 Morbid (severe) obesity due to excess calories; Z20.828 Contact with and (suspected) exposure to other viral communicable diseases; J41.0 Simple chronic bronchitis; N32.89 Other specified disorders of bladder; Z83.3 Family history of diabetes mellitus; Z98.891 History of uterine scar from previous surgery; F17.210 Nicotine dependence, cigarettes, uncomplicated
CPT/HCPCS: 36415; 74018; 74177; 80048; 85007; 85025; 87426; 88304; 94640; 94760; J0694; J0780; J1100; J1170; J1450; J1644; J1885; J2270; J2405; J2543; J2704; J2710; J3010; J3490; J7030; J7120; Q9966; Q9967; G0378; U0003-CS